=== PATIENT | female | born 1945 | race Asian ===

== ENCOUNTER 2020-07-13 09:20 | Inpatient (IN) | payer MEDICARE, BC ==
[2020-07-13] MEDS ORDERED: niCARdipine 25 MG in Sodium Chloride 0.9% 250 ML 250 ML IVPB PRN (10:21)
[2020-07-13] MEDS ORDERED: Ondansetron PF 4 MG/2 ML Vial IVP PRN (10:21)
[2020-07-13] MEDS ORDERED: Pantoprazole 40 MG VIAL IVP SCH (10:21)
[2020-07-13] MEDS ORDERED: Senokot S 8.6-50 MG TAB PO PRN (10:21)
[2020-07-13] MEDS ORDERED: Bisacodyl 10 MG SUPP PR PRN (10:21)
[2020-07-13] MEDS ORDERED: Acetaminophen 325 MG TAB PO PRN (10:21)
[2020-07-13] MEDS ORDERED: Guaifenesin DM 100-10/5 ML UDCUP PO PRN (10:21)
--- NOTE | 2020-07-13 11:14 | HP ---
REASON FOR ADMISSION: Hemorrhagic stroke with right hemiplegia. HISTORY OF PRESENTING ILLNESS: Please note majority of this history is obtained by talking to the patient's over phone and ER records as the patient is unable to communicate well and has issues with language barrier as well. She is not oriented at present. Per , the patient fell in the bathroom yesterday morning. He assisted her to go back to the bed. After this, they went to the routine walking in the mall, which they do on a daily basis. He apparently saw the patient dragging her right lower extremity a bit. They came home and ate lunch. During lunch, he noticed that she could not pick and hold on to stuff in the right hand. Anyways, they watch TV and slept. This morning, she wanted to use the restroom and could not get up, that is when he noticed that this was something serious going on and called EMS and the patient was taken to [facility] initially from where she was transferred here. Currently, the patient is not in any distress. She is comfortable breathing. She is moving her left upper and lower extremities freely. She does not move right upper and lower extremities. No exposure to COVID per . PAST MEDICAL AND SURGICAL HISTORY: 1. History of dementia for the last 15 years. says that she has issues with memory, but is functional otherwise, ambulates by herself and communicates well. 2. Tubal ligation. 3. No prior history of stroke or heart disease. CURRENT MEDICATIONS: 1. Omeprazole 20 mg daily. 2. Aricept 10 mg daily. 3. Namenda 10 mg twice daily. 4. Metamucil 0.4 mg daily. ALLERGIES: NO KNOWN DRUG ALLERGIES. PERSONAL HISTORY: Does not abuse alcohol or drugs. No history of smoking. She has been [place] in the [place] with her . FAMILY HISTORY: Both parents in their 70s from unknown cause. CODE STATUS: Full. Power of litigation attorney associate is her . REVIEW OF SYSTEMS: Cannot be obtained as the patient is not oriented at present. PHYSICAL EXAMINATION: GENERAL: The patient is a 75-year-old female who is currently not in any acute distress. VITAL SIGNS: Blood pressure 140/110, pulse 82 per minute, respiratory rate 18 per minute, temperature 98.2 degrees Fahrenheit, saturating 95% on room air. NECK: Supple. No elevated JVP. EYES: Extraocular muscles intact. Pupils reacting to light. ORAL CAVITY: Mucous membranes are dry. No exudates or congestion. CARDIOVASCULAR SYSTEM: S1 and S2 heard. Regular rhythm. RESPIRATORY SYSTEM: Air entry 1+ bilateral. No rales or rhonchi. ABDOMEN: Soft. Bowel sounds heard. No tenderness, rigidity, or guarding. EXTREMITIES: No peripheral edema or calf tenderness. VASCULAR SYSTEM: Peripheral pulses 2+ bilateral. No ischemic ulcers or gangrene. CENTRAL NERVOUS SYSTEM: The patient has dense right hemiplegia with strength of 0/5 in both right upper and lower extremities. The patient tries to communicate. She does not appear to have any cranial nerve deficits on limited clinical exam. She freely moves her left upper and lower extremities. PSYCHIATRIC SYSTEM: No obvious hallucinations or delusions. LABORATORY DATA AND DIAGNOSTIC STUDIES: A CT brain without contrast obtained shows a 4 x 4.5 cm patchy intraparenchymal hemorrhage in the left parietal lobe without extra-axial hemorrhage, there is no midline shift. Chest x-ray done shows no acute intrathoracic disease. White count of 4, hemoglobin and hematocrit 14 and 45, platelet count 183, and MCV is 89 with 59% neutrophils. PT, INR, and PTT within normal limits. BUN 12, creatinine 0.9, and serum glucose 134. Liver enzymes within normal limits. First set of troponin is negative. Albumin 4.2. EKG done shows normal sinus rhythm with incomplete RBBB at 90 beats per minute. CLINICAL IMPRESSION AND PLAN: The patient will be admitted to ICU for intraparenchymal bleed with hemorrhagic right hemiplegia. The patient has not had prior cerebrovascular accident. She has had symptoms of dementia for the last 15 years. Unclear if the patient has amyloidosis. We will obtain a repeat CT brain without contrast in the morning. JOANNE Sanabria, for Neurosurgery has been consulted from ER. Ms. Arce is not on any antiplatelet or on any anticoagulants. No history of heart disease or arrhythmias in the past. She will be on Protonix IV daily, D5 normal saline at 80 mL per hour. We will keep her on clear liquid diet. Echo for LV function. Speech, PT, and OT evaluations will be requested. We will continue to closely monitor her in ICU for tonight, and once she is stable, we will downgrade her to stroke unit. The patient likely will need rehab upon discharge for further recuperation. Might need a MRI with contrast in 4 weeks to see for any underlying mass leading to bleed in the brain. Job ID: [id number] [facility]
[2020-07-13 12:48] LABS: SARS-CoV-2 NAA Rapid Test Not Detected (NotDetected)
--- NOTE | 2020-07-13 16:13 | CON ---
DATE OF CONSULTATION: HISTORY OF PRESENT ILLNESS: Ms. Arce is a pleasant 75-year-old woman with baseline Alzheimer dementia, who reportedly yesterday was out on her typical walk with her when he noticed that she was somewhat dragging her right lower leg. He provides most of the history given her altered cognitive status, but also significant language barrier. He states that he did not think much of this, but then this morning, the patient was unable to get out of bed and essentially appeared to be hemiplegic on the right side in the upper and lower extremity. For this purpose, he brought her to the emergency department at [facility], where they performed a head CT that revealed a left-sided subacute intraparenchymal hemorrhage measuring roughly 4 x 5 cm, but also rather superficial within the cortical grady matter. There is no midline shift, only moderate vasogenic edema and minimal mass effect to the surrounding brain parenchyma. She does not take any blood thinning medications. Has no other history other than the aforementioned dementia. PHYSICAL EXAMINATION: The patient is alert and interactive, but frequently combative. Apparently, this is the baseline for the patient according to daughter and at bedside. She does move her left upper and left lower extremity briskly and with ease, but does not necessarily follow any given commands. Some of this may certainly be related to language barrier as well. Pupils equal, round, and reactive to light. Extraocular movements are intact. Her systolic pressures are excellent in the 108 to 115 range while I am in the room. Neurosurgery recommendation at this time will be definitively nonsurgical. I would like to repeat her CT scan this evening as opposed to tomorrow just to ensure that there is no change at this time, but I do not anticipate any surgical intervention given size, location, and appearance at this time. I did discuss with family that she will likely need extensive rehab to regain functionality in the right side, but that time we will ultimately tell the extent of debility, their understanding of this. Neurosurgery will continue to follow. Job ID: [id number]
--- NOTE | 2020-07-13 17:50 | CON ---
NEUROLOGY CONSULTATION DATE OF CONSULTATION: 07/13/2020 REASON FOR CONSULTATION: Hemorrhagic stroke with right hemiplegia. HISTORY OF PRESENT ILLNESS: Ms. Yazmin Santos is a 75-year-old female, who presented with right hemiplegia. Per , she fell in the bathroom yesterday morning. He assisted to the bed. They went walking routinely to the mall, which they do it on a daily basis and he noticed that she was dragging her right lower extremity. They went home, ate lunch and at that time she could not pick anything from her right arm. They watched TV and she slept. In the morning, she woke up and unable to go to the restroom by herself and felt weak on the right side of the body, so he decided to bring her to the emergency room for further evaluation. The denies any recent sick contacts, exposure to COVID, chest pain, chest pain, abdominal pain, vertigo, dizziness, double vision or loss of vision associated with the episode. REVIEW OF SYSTEMS: Per , all systems reviewed and were negative except the pertinent positives and negatives mentioned in the HPI. PAST MEDICAL HISTORY: Dementia. PAST SURGICAL HISTORY: Tubal ligation. No prior history of stroke or heart disease. FAMILY HISTORY: Not significant for stroke or heart disease. CURRENT MEDICATIONS: 1. Omeprazole 20 mg daily. 2. Aricept 10 mg daily. 3. Namenda 10 mg twice daily. 4. Metamucil 0.4 mg daily. ALLERGIES: NO KNOWN DRUG ALLERGIES. SOCIAL HISTORY: , lives with her . Denies smoking, alcohol, illegal drug use. PHYSICAL EXAMINATION: VITAL SIGNS: Blood pressure 140/110, pulse 82, respiratory rate 18. CVS: Regular rate and rhythm. CHEST: Clear. ABDOMEN: Soft. NECK: Supple. NEUROLOGICAL: Mental status, the patient is alert and oriented to person and place. She does have expressive aphasia. Cranial nerves, right facial droop. Motor; muscle tone is decreased, bulk is normal. Right hemiplegia, spontaneously moving left upper and lower extremity. Cerebellar, unable to perform on the right secondary to weakness. Sensory, withdraws to nailbed pressure left greater than right. Gait deferred due to patient's safety reason. DATA REVIEWED: CT scan of the brain reviewed which showed 4.5 cm patchy intraparenchymal hemorrhage in the left parietal lobe without extra-axial blood and no midline shift. EKG showed normal sinus rhythm. ASSESSMENT AND PLAN: Ms. ANDRADE was consulted for right hemiplegia. Head CT consistent with hemorrhagic stroke. Neurosurgery is on board. Neuro checks every 2 hours. Neurosurgery is on board. Avoid antiplatelets or anticoagulants. Continue telemetry to rule out arrhythmias. Strict control of blood pressure at this time. Neuro checks every 2 hours. Consider stat noncontrast head CT if the condition worsens. Need stroke work up including MRI Brain, 2 D Echo and carotid dopplers. Continue home medications. Continue medical management per primary team, PT/OT/Speech. DVT prophylaxis with SCDs. We will continue to follow. Thank you for the consult. Job ID: [id number] [facility]
[2020-07-13] MEDS ORDERED: Labetalol HCl 100 MG/20 ML VIAL ONE (21:28)
--- NOTE | 2020-07-13 21:36 | CT ---
NONCONTRAST CT HEAD: 07/13/20 HISTORY: Follow-up stroke. COMPARISON: 07/13/20 FINDINGS: The previously described large left frontal lobe hemorrhage with adjacent edema has increased. Larges t dimension of the hemorrhage on the current exam measures 5.4 cm AP x 5 cm transverse with previous measurements of 4 cm AP x 4.5 cm transverse. The adjacent edema is also increased from prior exam. Th ere is sulcal effacement involving the left frontal lobe. There is also bowing of the falx to the rig ht with slight shift of midline structures to the right measuring approximately 2.5 mm. Mild cerebral volume loss is present. There is no evidence of hydrocephalus. No calvarial fracture is seen. No other interval change. IMPRESSION: 1. Interval increase in size of large parenchymal hematoma in the left frontal lobe with increas e in adjacent edema as well as increase in sulcal effacement. 2. Slight shift of midline structures to the right at level of hemorrhage. 3. Above findings discussed with Florentin Polk, neurosurgery PA on 07/13/20 at 2043 hours. POS: RUSSEL
[2020-07-13] MEDS: Metoprolol Tartrate 25 MG TAB PO SCH (21:48)
[2020-07-13 22:48] LABS: Bacteria/HPF None Seen HPF (None Seen); Bilirubin Negative (Negative); Blood, Urine 1+ (Negative); Clarity Turbid (Clear); Glucose, Urine (Dipstick) Normal (Negative); Ketone, Urine 20 mg/dL (Negative); Leukocyte Negative Leu/uL (Negative); Nitrite Negative (Negative); Protein, Urine (Dipstick) 30 mg/dL (Neg-Trace); Specific Gravity, Urine 1.016 (1.002-1.036); Squamous Epithelial None Seen HPF (0-3); Transitional Epithelial 0-3 HPF (None Seen); Urobilinogen Normal mg/dL (Less than 2); WBC/HPF 0-3 HPF (0-3)
[2020-07-13 22:52] LABS: Urine Culture Reflex No No
[2020-07-13] MEDS: Labetalol HCl 100 MG/20 ML VIAL SLOW IVP PRN (23:33)
[2020-07-14 03:38] LABS: #Eosinphils 0.1 thou/uL (0.0-0.7); #Lymphocytes 1.5 thou/uL (1.20-3.40); #Monocytes 0.4 thou/uL (0.11-0.59); #Neutrophils 5.6 thou/uL (1.40-6.50); %Basophils 0.2 % (0.0-1.0); %Eosinophils 0.8 % (0.0-10.0); %Lymphocytes 20.1 % (21.0-51.0); %Monocytes 5.8 % (0.0-10.0); %Neutrophils 73.1 % (42.0-75.0); Mean Corpuscular HGB CONC 32.7 g/dL (32.0-36.0); Mean Corpuscular Hemoglobin 28.9 pg (27.0-31.0); Mean Corpuscular Volume 88.4 fL (78.0-98.0); Mean Platelet Volume 6.4 fL (7.4-10.4); Platelet Count 207 thou/uL (130-400); RBC Distribution Width 12.4 % (11.5-14.5); Red Blood Cell (RBC) Count 5.18 mill/uL (4.20-5.40); White Blood Cell (WBC) Count 7.6 thou/uL (4.8-10.8)
[2020-07-14 04:01] LABS: Anion Gap 15 mmol/L (10-20); BUN (Urea Nitrogen) 14 mg/dL (9.8-20.1); Calc. Creatinine Clearance 54 mL/min (70-130); Calcium 9.1 mg/dL (7.8-10.44); Carbon Dioxide 21 mmol/L (23-31); Cardiac Risk 4.5 (Less than 4.5); Chloride 110 mmol/L (98-107); Cholesterol 156 mg/dl (< 200 Desired); Glucose 135 mg/dL (83-110); HDL Cholesterol 35 mg/dL (>60 Neg Risk); LDL Cholesterol, Calculated 76 mg/dL; Potassium 3.7 mmol/L (3.5-5.1); Sodium 142 mmol/L (136-145); Triglycerides 223 mg/dL (Less than 150)
--- NOTE | 2020-07-14 07:17 | PRG ---
DATE OF SERVICE: 07/14/2020 Ms. Arce presented yesterday with altered mental status and with a head CT which revealed the presence of a large left frontal intraparenchymal hemorrhage. She has had at least 2 subsequent CTs performed since that time which reveal slight enlargement with a slight degree of midline shift and associated perihemorrhagic edema. This is a large intraparenchymal frontal with some parietal extension hematoma in the dominant lobe. The plan will be nonsurgical management. Osmotic agents maybe utilized as necessary to reduce intracranial pressure and midline shift. Neurosurgical Service will continue to follow. Job ID: [id number]
--- NOTE | 2020-07-14 07:37 | CT ---
PRELIMINARY REPORT/[facility]/EMERGENCY AFTER HOURS PROCEDURE EXAM: CT Head Without Intravenous Contrast. CLINICAL HISTORY: Follow up ICH TECHNIQUE: Axial computed tomography images of the head/brain without intravenous contrast. COMPARISON: CTSR - CT BRAIN WO CON - 07/13/2020 08:36 PM OPERATIONS SUPPORT ANALYST FINDINGS: BRAIN: Left frontal lobe hemorrhage measures up to 4.9 cm in maximum transverse dimension is similar in appe arance compared to prior given slightly different is in positioning. There is persistent vasogenic edema and adjacent mass-effect in the left frontal and parietal lobes there is mild persistent bowing of the Hong and 3 left to right midline shift at the level of the septum pellucidum, similar in appearance compared to prior. No new intracranial hemorrhage, midline shift or evidence of herniation . VENTRICLES: The ventricles are unchanged in appearance. ORBITS: The globes are intact. SINUSES AND MASTOIDS: The paranasal sinuses and mastoid air cells are clear. SOFT TISSUES: No significant facial or scalp soft tissue swelling evident. No radiopaque foreign body is seen. BONES: No acute skull fracture. IMPRESSION: Large left frontal lobe hematoma with surrounding edema and mass-effect. Minimal left to right midli ne shift. Findings are stable in comparison to prior. No new intracranial hemorrhage, midline shift or evidence of herniation. ELECTRONICALLY SIGNED BY: Charmaine Gray MD Jul 14, 2020 4:18:29 AM OPERATIONS SUPPORT ANALYST This report is intended for review by the ordering physician only, in accordance of law. If you recei ve this report in error, please call [facility] at [phone]. FINAL REPORT Final interpretation Head CT without contrast: 07/14/2020 COMPARISON: 07/13/2020 HISTORY: Reevaluate intracranial hemorrhage. FINDINGS: The imaged paranasal sinuses and mastoid air cells are well-aerated. There is no displaced calvarial fracture seen. There is a large complex intra-axial hemorrhage in the left frontal region measuring approximately 5. 5 cm in transverse dimension and 4.7 cm in AP dimension, not significantly changed when compared to the most recent prior examination. Prominent surrounding vasogenic edema is unchanged as well. There is slight [id number] midline shift, stable. Very subtle hyperdense nodularity is seen in the region of the tentorium on the left which may signif y subtle calcification or additional hemorrhage. Continued follow-up required. IMPRESSION: No significant interval change in nonspecific large intra-axial hematoma within the left frontal lobe with surrounding vasogenic edema. Follow-up brain MRI with and without contrast is advised. Transcribed Date/Time: 07/14/2020 8:19 AM
[2020-07-14] MEDS: Pantoprazole 40 MG VIAL IVP SCH (09:08)
[2020-07-14] MEDS: Metoprolol Tartrate 25 MG TAB PO SCH ×3 (09:08→21:18)
--- NOTE | 2020-07-14 09:41 | CON ---
DATE OF CONSULTATION: 07/14/2020 REASON FOR CONSULTATION: ICU management. HISTORY OF PRESENT ILLNESS: The patient is a 75-year-old female who was brought to the emergency room yesterday with a left intraparenchymal hemorrhage. She has some right-sided hemiparesis. She has a difficult time communicating. PAST MEDICAL HISTORY: 1. Alzheimer type dementia. 2. Tubal ligation. 3. Gastroesophageal reflux. MEDICATIONS: Omeprazole, Aricept, Namenda, Metamucil. ALLERGIES: NONE. SOCIAL HISTORY: Nonsmoker. Does not consume alcohol. Originally from [place]. FAMILY MEDICAL HISTORY: Unknown. REVIEW OF SYSTEMS: Not obtainable secondary to her dementia. PHYSICAL EXAMINATION: VITAL SIGNS: Pulse 86, blood pressure 121/65, O2 saturations 98%, respiratory rate 16. She was on a nicardipine drip that has been stopped. HEENT: Unremarkable. NECK: No JVD. LUNGS: Clear. CARDIAC: S1 and S2. Regular. ABDOMEN: Soft. EXTREMITIES: No edema. NEUROLOGIC: She has some hemiparesis in the right arm. LABORATORY DATA: White blood cell count 7.6, hematocrit 45.8, and platelet count 207. Sodium 142, potassium 3.7, chloride 110, CO2 of 21, BUN 14, creatinine 0.8, and glucose 135. COVID test was negative. CT scan was reviewed. ASSESSMENT: Brain hemorrhage. PLAN: Supportive care as per Neurosurgery is planned. The lab from a pulmonary standpoint will be available as needed. Job ID: [id number]
--- NOTE | 2020-07-14 14:34 | PDOC.EEG ---
Neurology EEG Report - Report Report: This EEG was performed using 24 channel [employer] video digital EEG machine with 24 disc electrodes. This was an extended 2-hour 4 minutes of inpatient video EEG recording. Digital analysis of the EEG was done for Cristofer and seizure detection which revealed no abnormalities Background: The posterior background rhythm is not observed. Hyperventilation: Not performed. Photic stimulation. Bioccipital symmetric response seen with photic stimulation. Sleep: No stage change was observed. EEG diagnosis: Generalized irregular theta activity seen during the recording. Nonsustained posterior background rhythm. Clinical interpretation: This EEG is consistent with moderate generalized nonspecific cerebral dysfunction.
--- NOTE | 2020-07-14 15:34 | PDOC.HOSPP ---
- Subjective Encounter Date: 07/14/20 Subjective: The patient is unable to talk but she can follow commands. - Objective Vital Signs & Weight: Vital Signs (12 hours) Temp Pulse Pulse BP BP Pulse Ox Pulse Ox 07/14/20 12:00 98.9 F 07/14/20 09:33 85 79 126/78 131/80 97 07/14/20 07:22 100 Pulse Ox 07/14/20 12:00 07/14/20 09:33 97 07/14/20 07:22 Weight Admit Weight 134 lb Weight 134 lb 4.184 oz Most Recent Monitor Data Heart Rate from ECG 85 NIBP 131/72 NIBP BP-Mean 91 Respiration from ECG 18 SpO2 95 I&O: 07/13/20 07/14/20 07/15/20 06:59 06:59 06:59 Intake Total 115 Output Total 617 245 Balance -502 -245 Result Diagrams: 07/14/20 03:17 07/14/20 03:17 Hospitalist ROS - Medication Medications: Active Medications Generic Name Dose Route Start Last Admin Trade Name Freq PRN Reason Stop Dose Admin Nicardipine HCl 25 mg/ Sodium 260 mls @ 0 mls/hr 07/13/20 10:21 07/14/20 00:06 Chloride IVPB 260 mls INF PRN Administration SBP > 140 Protocol Titrate Labetalol HCl 10 mg 07/13/20 21:26 07/13/20 23:33 Labetalol Hcl 100 Mg/20 Ml Vial SLOW IVP 10 mg Q2H PRN Administration SBP > 140 Metoprolol Tartrate 25 mg 07/13/20 21:00 07/14/20 09:16 Metoprolol Tartrate 25 Mg Tab PO Not Given BID GRAZYNA Pantoprazole Sodium 40 mg 07/14/20 09:00 07/14/20 09:08 Pantoprazole 40 Mg Vial IVP 40 mg DAILY GRAZYAN Administration - Exam General Appearance: awake alert Neck: supple, no JVD Heart: RRR Respiratory: normal chest expansion, no tachypnea Extremities: no cyanosis Neurological - other findings: Right-sided weakness Hosp A/P (1) Intracranial hemorrhage Code(s): I62.9 - NONTRAUMATIC INTRACRANIAL HEMORRHAGE, UNSPECIFIED Status: Acute (2) Altered mental status Code(s): R41.82 - ALTERED MENTAL STATUS, UNSPECIFIED Status: Acute - Plan Repeat CT scan of the head revealed stable hemorrhage. The patient is following commands and moving her left side but unable to move the right side of her body. Blood pressure is stable with no evidence of hypertension. Echocardiogram did not show any evidence of intracardiac thrombi.
--- NOTE | 2020-07-14 15:59 | PDOC.NEUPN ---
- Subjective Encounter Date: 07/14/20 Subjective: Patient somnolent and does not follow commands. Family at bedside. - Objective Vital Signs & Weight: Vital Signs (12 hours) Temp Pulse Pulse BP BP Pulse Ox Pulse Ox 07/14/20 12:00 98.9 F 07/14/20 09:33 85 79 126/78 131/80 97 07/14/20 07:22 100 Pulse Ox 07/14/20 12:00 07/14/20 09:33 97 07/14/20 07:22 Weight Admit Weight 134 lb Weight 134 lb 4.184 oz Most Recent Monitor Data Heart Rate from ECG 85 NIBP 131/72 NIBP BP-Mean 91 Respiration from ECG 18 SpO2 95 I&O: 07/13/20 07/14/20 07/15/20 06:59 06:59 06:59 Intake Total 115 Output Total 617 245 Balance -502 -245 Result Diagrams: 07/14/20 03:17 07/14/20 03:17 Radiology Reviewed by me: Yes EKG Reviewed by me: Yes ROS - Review of Systems ROS unobtainable: due to mental status - Medication Medications: Active Medications Generic Name Dose Route Start Last Admin Trade Name Freq PRN Reason Stop Dose Admin Nicardipine HCl 25 mg/ Sodium 260 mls @ 0 mls/hr 07/13/20 10:21 07/14/20 00:06 Chloride IVPB 260 mls INF PRN Administration SBP > 140 Protocol Titrate Labetalol HCl 10 mg 07/13/20 21:26 07/13/20 23:33 Labetalol Hcl 100 Mg/20 Ml Vial SLOW IVP 10 mg Q2H PRN Administration SBP > 140 Metoprolol Tartrate 25 mg 07/13/20 21:00 07/14/20 09:16 Metoprolol Tartrate 25 Mg Tab PO Not Given BID GRAZYNA Pantoprazole Sodium 40 mg 07/14/20 09:00 07/14/20 09:08 Pantoprazole 40 Mg Vial IVP 40 mg DAILY GRAZYNA Administration - Exam General Appearance: NAD Eye: PERRL ENT: normocephalic atraumatic Neck: supple Respiratory: CTAB Cardiovascular: RRR Gastrointestinal: soft Extremities: no cyanosis Neurological: facial droop, hemiplegia, speech deficit Neurological - other findings: Right-sided focal deficit Musculoskeletal: normal tone, no muscle wasting PSYCH: somnolent Results - Labs Result Diagrams: 07/14/20 03:17 07/14/20 03:17 Lab results: WBC 7.6 thou/uL (4.8-10.8) 07/14/20 03:17 Hgb 15.0 g/dL (12.0-16.0) 07/14/20 03:17 Hct 45.8 % (36.0-47.0) 07/14/20 03:17 MCV 88.4 fL (78.0-98.0) 07/14/20 03:17 Plt Count 207 thou/uL (130-400) 07/14/20 03:17 Neutrophils % 73.1 % (42.0-75.0) 07/14/20 03:17 Sodium 142 mmol/L (136-145) 07/14/20 03:17 Potassium 3.7 mmol/L (3.5-5.1) 07/14/20 03:17 Chloride 110 mmol/L (98-107) H 07/14/20 03:17 Carbon Dioxide 21 mmol/L (23-31) L 07/14/20 03:17 BUN 14 mg/dL (9.8-20.1) 07/14/20 03:17 Creatinine 0.83 mg/dL (0.6-1.1) 07/14/20 03:17 Glucose 135 mg/dL (83-110) H 07/14/20 03:17 Calcium 9.1 mg/dL (7.8-10.44) 07/14/20 03:17 Urine Ketones 20 mg/dL (Negative) A 07/13/20 22:20 Urine Blood 1+ (Negative) A 07/13/20 22:20 Urine Nitrite Negative (Negative) 07/13/20 22:20 Ur Leukocyte Esterase Negative Leonor/uL (Negative) 07/13/20 22:20 Urine RBC 11-20 HPF (0-3) A 07/13/20 22:20 Urine WBC 0-3 HPF (0-3) 07/13/20 22:20 Ur Squamous Epith Cells None Seen HPF (0-3) 07/13/20 22:20 Urine Bacteria None Seen HPF (None Seen) 07/13/20 22:20 - Radiology Interpretation CT scan - head Additional Comment: CT showed stable left intraparenchymal hemorrhage PN A/P (1) Intracranial hemorrhage Code(s): I62.9 - NONTRAUMATIC INTRACRANIAL HEMORRHAGE, UNSPECIFIED Status: Acute (2) Right hemiplegia Code(s): G81.91 - HEMIPLEGIA, UNSPECIFIED AFFECTING RIGHT DOMINANT SIDE Status: Acute (3) Altered mental status Code(s): R41.82 - ALTERED MENTAL STATUS, UNSPECIFIED Status: Acute - Plan Daily Plan: plan discussed w/ family (Daughter and son at bedside), PT/OT, speech therapy, DVT proph w/SCDs Ms. carmichael is a 75-year-old female with history significant for Alzheimer's dementia hypertension presented with altered mental status and right hemiplegia with speech deficit. Head CT showed large intraparenchymal hemorrhage on the left. Repeat head CT showed stable hemorrhage. Neurosurgery on board. Serial head CTs daily per neurosurgery to monitor the bleed. Neurosurgery do not feel the need of surgical intervention at this time. Neurochecks every [address] if the condition declines. EEG reviewed which was negative for seizure activity. Telemetry to rule out arrhythmias. 2D echo showed normal ejection fraction with no thrombus or PFO. Stroke work-up including MRI brain and carotid Dopplers when stable Avoid antiplatelets and anticoagulants due to recent bleed. PT/OT/speech. N.p.o. till cleared by speech. Continue medical management per primary team neurosurgery. Plan discussed in detail with the nursing staff and also with the son and daughter at bedside including the prognosis and CODE STATUS.
--- NOTE | 2020-07-14 16:20 | PRG ---
DATE OF SERVICE: 07/14/2020 Ms. Arce this morning is a little more somnolent than compared to yesterday, but apparently according to neuro checks, she actually was a little bit worse than how I am seeing her today. She is awake and interactive. She says one-word phrases [id number]. The hemorrhage did expand to some degree comparatively on yesterday evening scan as compared to her repeat CT this morning, however, appears stable , so this is some positivity. Vitals; her systolic pressure is 108 as I am standing here and apparently this has been consistent since overnight. My hope is that this does not continue to expand, but it may be reasonable to think that she has apathy or some other angiographic process underlying that is the line for expansion given the excellent control of her blood pressure since presentation to the hospital. No surgery was indicated here. I discussed with family that I think over the next 24 hours, we will know a lot more about her prognosis, but still feels hemorrhage. She will just need extensive rehab to fully recover. If this is truly hemorrhage personal service representative angiopathy, though risk for recurrence is high and I worry about further worsening of hemorrhages, we would increase activity in the coming days. Job ID: [id number]
[2020-07-15] MEDS: Sodium Chloride 0.9% 1,000 ML IV SCH (03:16)
--- NOTE | 2020-07-15 08:05 | CT ---
CT BRAIN NONCONTRAST: DATE: 07/15/2020 7:29 AM HISTORY: 75-year-old female follow-up acute intracranial hemorrhage COMPARISON: 07/14/2020 3:54 AM FINDINGS: Large upper frontal left cerebral intra-axial hematoma. Depending on how it is measured, with current measurements of approximately 6.5 x 5 cm, there is no significant interval change since yesterday. Minimal left to right midline shift of the interhemispheric falx and septum pellucidum by approximate ly 0.3 cm is similar. Degree of surrounding vasogenic edema with effacement of left hemispheric sulci and distortion of left lateral ventricle appears similar to prior study. No new hemorrhage. Mustapha varium is intact. No interval change overall. IMPRESSION: Large spontaneous left upper cerebral intra-axial hematoma with vasogenic edema, mass effect, and min imal subfalcine herniation. No significant interval change since yesterday.
--- NOTE | 2020-07-15 08:55 | PRG ---
DATE OF SERVICE: 07/15/2020 SUBJECTIVE: She remains in the CCU. She is not requiring any drips. OBJECTIVE: VITAL SIGNS: On exam, pulse 75, blood pressure 130/70, O2 saturation 97%, respiratory rate 17, and temperature 99.5. HEENT: Unremarkable. NECK: No JVD. CHEST: Clear. CARDIAC: S1 and S2. Regular. ABDOMEN: Soft. EXTREMITIES: No edema. LABORATORY DATA: No labs were obtained today. ASSESSMENT: Intracranial hemorrhage. PLAN: From my standpoint, she can be transferred out to the floor. There are no pulmonary issues at present. Job ID: [id number]
[2020-07-15] MEDS: Labetalol HCl 100 MG/20 ML VIAL SLOW IVP PRN (09:31)
[2020-07-15] MEDS: Metoprolol Tartrate 25 MG TAB PO SCH ×2 (10:06→22:32)
[2020-07-15] MEDS: Pantoprazole 40 MG VIAL IVP SCH (10:07)
--- NOTE | 2020-07-15 12:53 | PDOC.NEUPN ---
- Subjective Encounter Date: 07/15/20 Subjective: Patient somnolent but opens eyes to verbal stimuli. She does not follow commands but does maintain eye contact. - Objective Vital Signs & Weight: Vital Signs (12 hours) Temp Pulse Pulse Pulse BP BP BP 07/15/20 12:00 99.0 F 07/15/20 09:52 72 74 132/82 141/75 H 07/15/20 09:31 85 145/79 H 07/15/20 08:00 99.1 F 07/15/20 04:00 99.5 F Pulse Ox Pulse Ox Pulse Ox 07/15/20 12:00 07/15/20 09:52 96 97 07/15/20 09:31 07/15/20 08:00 97 07/15/20 04:00 Weight Admit Weight 134 lb Weight 2.106 oz Most Recent Monitor Data Heart Rate from ECG 74 NIBP 118/69 NIBP BP-Mean 85 Respiration from ECG 15 SpO2 92 I&O: 07/14/20 07/15/20 07/16/20 06:59 06:59 06:59 Intake Total 115 118 Output Total 617 780 245 [facility] -662 -245 Result Diagrams: 07/14/20 03:17 07/14/20 03:17 Radiology Reviewed by me: Yes EKG Reviewed by me: Yes ROS - Review of Systems ROS unobtainable: due to mental status - Medication Medications: Active Medications Generic Name Dose Route Start Last Admin Trade Name Freq PRN Reason Stop Dose Admin Nicardipine HCl 25 mg/ Sodium 260 mls @ 0 mls/hr 07/13/20 10:21 07/14/20 00:06 Chloride IVPB 260 mls INF PRN Administration SBP > 140 Protocol Titrate Sodium Chloride 1,000 mls @ 40 mls/hr 07/15/20 03:00 07/15/20 03:16 Normal Saline 0.9% IV 1,000 mls .Q24H GRAZYNA Administration Labetalol HCl 10 mg 07/13/20 21:26 07/15/20 09:31 Labetalol Hcl 100 Mg/20 Ml Vial SLOW IVP 10 mg Q2H PRN Administration SBP > 140 Metoprolol Tartrate 25 mg 07/13/20 21:00 07/15/20 10:06 Metoprolol Tartrate 25 Mg Tab PO Not Given BID GRAZYNA Pantoprazole Sodium 40 mg 07/14/20 09:00 07/15/20 10:07 Pantoprazole 40 Mg Vial IVP 40 mg DAILY GRAZYNA Administration - Exam General Appearance: NAD, awake alert Eye: PERRL ENT: normocephalic atraumatic Neck: supple Respiratory: CTAB Cardiovascular: RRR Gastrointestinal: soft Extremities: no cyanosis Neurological: facial droop, hemiplegia, speech deficit Neurological - other findings: Right-sided deficits Musculoskeletal: no muscle wasting PSYCH: not oriented (Aphasic), somnolent Results - Labs Result Diagrams: 07/14/20 03:17 07/14/20 03:17 Lab results: WBC 7.6 thou/uL (4.8-10.8) 07/14/20 03:17 Hgb 15.0 g/dL (12.0-16.0) 07/14/20 03:17 Hct 45.8 % (36.0-47.0) 07/14/20 03:17 MCV 88.4 fL (78.0-98.0) 07/14/20 03:17 Plt Count 207 thou/uL (130-400) 07/14/20 03:17 Neutrophils % 73.1 % (42.0-75.0) 07/14/20 03:17 Sodium 142 mmol/L (136-145) 07/14/20 03:17 Potassium 3.7 mmol/L (3.5-5.1) 07/14/20 03:17 Chloride 110 mmol/L (98-107) H 07/14/20 03:17 Carbon Dioxide 21 mmol/L (23-31) L 07/14/20 03:17 BUN 14 mg/dL (9.8-20.1) 07/14/20 03:17 Creatinine 0.83 mg/dL (0.6-1.1) 07/14/20 03:17 Glucose 135 mg/dL (83-110) H 07/14/20 03:17 Calcium 9.1 mg/dL (7.8-10.44) 07/14/20 03:17 Urine Ketones 20 mg/dL (Negative) A 07/13/20 22:20 Urine Blood 1+ (Negative) A 07/13/20 22:20 Urine Nitrite Negative (Negative) 07/13/20 22:20 Ur Leukocyte Esterase Negative Leonor/uL (Negative) 07/13/20 22:20 Urine RBC 11-20 HPF (0-3) A 07/13/20 22:20 Urine WBC 0-3 HPF (0-3) 07/13/20 22:20 Ur Squamous Epith Cells None Seen HPF (0-3) 07/13/20 22:20 Urine Bacteria None Seen HPF (None Seen) 07/13/20 22:20 - Radiology Interpretation CT scan - head Additional Comment: Repeat head CT showed stable left intraparenchymal hematoma with vasogenic edema. PN A/P (1) Intracranial hemorrhage Code(s): I62.9 - NONTRAUMATIC INTRACRANIAL HEMORRHAGE, UNSPECIFIED Status: Acute (2) Right hemiplegia Code(s): G81.91 - HEMIPLEGIA, UNSPECIFIED AFFECTING RIGHT DOMINANT SIDE Status: Acute (3) Altered mental status Code(s): R41.82 - ALTERED MENTAL STATUS, UNSPECIFIED Status: Acute - Plan Daily Plan: PT/OT, speech therapy Consults: Palliative Care Ms. carmichael is a 75-year-old female with history significant for Alzheimer's dementia hypertension presented with altered mental status and right hemiplegia with speech deficit. Head CT showed large intraparenchymal hemorrhage on the left. Repeat head CT this morning showed stable hemorrhage. Patient little bit more alert today but has significant neurological deficits. Prognosis is guarded. No family at bedside today Neurosurgery on board. Serial head CTs daily per neurosurgery to monitor the bleed. Neurosurgery do not feel the need of surgical intervention at this time. Continue neurochecks every [address] if the condition declines. EEG reviewed which was negative for seizure activity. Telemetry to rule out arrhythmias. 2D echo showed normal ejection fraction with no thrombus or PFO. Stroke work-up including MRI brain and carotid Dopplers when stable Avoid antiplatelets and anticoagulants due to recent bleed. PT/OT/speech. N.p.o. till cleared by speech. Continue medical management per primary team and neurosurgery.
--- NOTE | 2020-07-15 13:07 | PRG ---
DATE OF SERVICE: 07/15/2020 Ms. Arce is stable this morning both neurologically and from standpoint of her repeat CT scan. Systolic pressures have remained in the one teens to 120s. No additional intervention planned at this time. I discussed with the patient's at bedside again that prognosis remains guarded. She likely will continue to experience increase in edema, which will worsen her neurologic exam and remains for this purpose. We will continue to follow along at this time. Job ID: [id number]
--- NOTE | 2020-07-15 15:22 | PDOC.HOSPP ---
- Subjective Encounter Date: 07/15/20 - Objective Vital Signs & Weight: Vital Signs (12 hours) Temp Pulse Pulse Pulse BP BP BP 07/15/20 12:00 99.0 F 07/15/20 09:52 72 74 132/82 141/75 H 07/15/20 09:31 85 145/79 H 07/15/20 08:00 99.1 F 07/15/20 04:00 99.5 F Pulse Ox Pulse Ox Pulse Ox 07/15/20 12:00 07/15/20 09:52 96 97 07/15/20 09:31 07/15/20 08:00 97 07/15/20 04:00 Weight Admit Weight 134 lb Weight 2.106 oz Most Recent Monitor Data Heart Rate from ECG 83 NIBP 119/81 NIBP BP-Mean 93 Respiration from ECG 21 SpO2 96 I&O: 07/14/20 07/15/20 07/16/20 06:59 06:59 06:59 Intake Total 115 118 Output Total 612 780 275 [facility] -502 -662 -275 Result Diagrams: 07/14/20 03:17 07/14/20 03:17 Hospitalist ROS - Medication Medications: Active Medications Generic Name Dose Route Start Last Admin Trade Name Freq PRN Reason Stop Dose Admin Nicardipine HCl 25 mg/ Sodium 260 mls @ 0 mls/hr 07/13/20 10:21 07/14/20 00:06 Chloride IVPB 260 mls INF PRN Administration SBP > 140 Protocol Titrate Sodium Chloride 1,000 mls @ 40 mls/hr 07/15/20 03:00 07/15/20 03:16 Normal Saline 0.9% IV 1,000 mls .Q24H GRAZYNA Administration Labetalol HCl 10 mg 07/13/20 21:26 07/15/20 09:31 Labetalol Hcl 100 Mg/20 Ml Vial SLOW IVP 10 mg Q2H PRN Administration SBP > 140 Metoprolol Tartrate 25 mg 07/13/20 21:00 07/15/20 10:06 Metoprolol Tartrate 25 Mg Tab PO Not Given BID GRAZYNA Pantoprazole Sodium 40 mg 07/14/20 09:00 07/15/20 10:07 Pantoprazole 40 Mg Vial IVP 40 mg DAILY GRAZYNA Administration - Exam General Appearance: awake alert ENT: normocephalic atraumatic Neck: supple, no JVD Heart: RRR Respiratory: normal chest expansion, no tachypnea Extremities: no cyanosis, no clubbing Hosp A/P (1) Intracranial hemorrhage Code(s): I62.9 - NONTRAUMATIC INTRACRANIAL HEMORRHAGE, UNSPECIFIED Status: Acute (2) Altered mental status Code(s): R41.82 - ALTERED MENTAL STATUS, UNSPECIFIED Status: Acute - Plan Repeat CT scan of the head revealed stable hemorrhage. The patient is more alert today and she is following some commands but unable to move the right side of her body. She is participating with ST. Blood pressure is stable with no evidence of hypertension. Echocardiogram did not show any evidence of intracardiac thrombi.
[2020-07-16] MEDS: Labetalol HCl 100 MG/20 ML VIAL SLOW IVP PRN ×2 (02:08→10:12)
[2020-07-16] MEDS: Sodium Chloride 0.9% 1,000 ML IV SCH (02:09)
[2020-07-16] MEDS: Metoprolol Tartrate 25 MG TAB PO SCH ×2 (10:12→20:32)
[2020-07-16] MEDS: Pantoprazole 40 MG VIAL IVP SCH (10:12)
--- NOTE | 2020-07-16 13:52 | PRG ---
DATE OF SERVICE: 07/16/2020 Ms. Arce this morning is in the ICU still. She is stable, does appear somewhat more interactive today though and responds to voice. She actually will make eye contact and smile. She is still densely plegic to the right upper and right lower extremities. Did have a speech evaluation yesterday and had tremendous dysfunction in her swallowing. There is plan for formal modified barium swallow later this afternoon today. I did have discussion with the at bedside and likely recommendation for a PEG tube placement and did briefly discuss rehab though I based off the report from Speech Therapy yesterday and her continued dense plegia, the likelihood of her recovery substantially enough to participate in rehab is likely low. I will still have discussion with and coleman their opinion. At this point, next best steps would likely be one of two pathways either proceeding with PEG tube placement or unlikely looking to disposition, which at this phase would most certainly be [facility] or further proceed of palliative pathway. We will wait until formal barium swallow is performed and then reconvene with family at bedside later this afternoon. Job ID: [id number]
--- NOTE | 2020-07-16 14:38 | PDOC.NEUPN ---
- Subjective Encounter Date: 07/16/20 Subjective: Ms. Arce is doing much better today. She is following some commands and more alert today. She is spontaneously moving her left side. - Objective Vital Signs & Weight: Vital Signs (12 hours) Temp Pulse BP Pulse Ox 07/16/20 12:00 99.0 F 07/16/20 10:12 75 150/75 H 07/16/20 08:00 98.9 F 97 07/16/20 04:00 98.0 F Weight Admit Weight 134 lb Weight 128 lb 8.472 oz Most Recent Monitor Data Heart Rate from ECG 69 NIBP 130/69 NIBP BP-Mean 89 Respiration from ECG 14 SpO2 97 I&O: 07/15/20 07/16/20 07/17/20 06:59 06:59 06:59 Intake Total 118 960 Output Total 780 895 365 Balance -662 65 -365 Result Diagrams: 07/14/20 03:17 07/14/20 03:17 Radiology Reviewed by me: Yes EKG Reviewed by me: Yes ROS - Review of Systems ROS unobtainable: due to mental status (Aphasia) - Medication Medications: Active Medications Generic Name Dose Route Start Last Admin Trade Name Freq PRN Reason Stop Dose Admin Nicardipine HCl 25 mg/ Sodium 260 mls @ 0 mls/hr 07/13/20 10:21 07/14/20 00:06 Chloride IVPB 260 mls INF PRN Administration SBP > 140 Protocol Titrate Sodium Chloride 1,000 mls @ 40 mls/hr 07/15/20 03:00 07/16/20 02:09 Normal Saline 0.9% IV 1,000 mls .Q24H GRAZYNA Administration Labetalol HCl 10 mg 07/13/20 21:26 07/16/20 10:12 Labetalol Hcl 100 Mg/20 Ml Vial SLOW IVP 10 mg Q2H PRN Administration SBP > 140 Metoprolol Tartrate 25 mg 07/13/20 21:00 07/16/20 10:12 Metoprolol Tartrate 25 Mg Tab PO Not Given BID GRAZYNA Pantoprazole Sodium 40 mg 07/14/20 09:00 07/16/20 10:12 Pantoprazole 40 Mg Vial IVP 40 mg DAILY GRAZYNA Administration - Exam General Appearance: awake alert Eye: PERRL ENT: normocephalic atraumatic Neck: supple Respiratory: CTAB Cardiovascular: RRR Gastrointestinal: soft Extremities: no cyanosis Skin: normal turgor Neurological: facial droop, hemiplegia, speech deficit Neurological - other findings: Right-sided neurological deficit Musculoskeletal: normal tone, no muscle wasting PSYCH: not oriented (Aphasic) Results - Labs Result Diagrams: 07/14/20 03:17 07/14/20 03:17 Lab results: WBC 7.6 thou/uL (4.8-10.8) 07/14/20 03:17 Hgb 15.0 g/dL (12.0-16.0) 07/14/20 03:17 Hct 45.8 % (36.0-47.0) 07/14/20 03:17 MCV 88.4 fL (78.0-98.0) 07/14/20 03:17 Plt Count 207 thou/uL (130-400) 07/14/20 03:17 Neutrophils % 73.1 % (42.0-75.0) 07/14/20 03:17 Sodium 142 mmol/L (136-145) 07/14/20 03:17 Potassium 3.7 mmol/L (3.5-5.1) 07/14/20 03:17 Chloride 110 mmol/L (98-107) H 07/14/20 03:17 Carbon Dioxide 21 mmol/L (23-31) L 07/14/20 03:17 BUN 14 mg/dL (9.8-20.1) 07/14/20 03:17 Creatinine 0.83 mg/dL (0.6-1.1) 07/14/20 03:17 Glucose 135 mg/dL (83-110) H 07/14/20 03:17 Calcium 9.1 mg/dL (7.8-10.44) 07/14/20 03:17 Urine Ketones 20 mg/dL (Negative) A 07/13/20 22:20 Urine Blood 1+ (Negative) A 07/13/20 22:20 Urine Nitrite Negative (Negative) 07/13/20 22:20 Ur Leukocyte Esterase Negative Leonor/uL (Negative) 07/13/20 22:20 Urine RBC 11-20 HPF (0-3) A 07/13/20 22:20 Urine WBC 0-3 HPF (0-3) 07/13/20 22:20 Ur Squamous Epith Cells None Seen HPF (0-3) 07/13/20 22:20 Urine Bacteria None Seen HPF (None Seen) 07/13/20 22:20 - Radiology Interpretation CT scan - head Additional Comment: Stable intraparenchymal hemorrhage on the left PN A/P (1) Intracranial hemorrhage Code(s): I62.9 - NONTRAUMATIC INTRACRANIAL HEMORRHAGE, UNSPECIFIED Status: Acute (2) Right hemiplegia Code(s): G81.91 - HEMIPLEGIA, UNSPECIFIED AFFECTING RIGHT DOMINANT SIDE Status: Acute (3) Altered mental status Code(s): R41.82 - ALTERED MENTAL STATUS, UNSPECIFIED Status: Acute - Plan Daily Plan: plan discussed w/ family (Stat bedside), PT/OT, speech therapy, DVT proph w/SCDs Ms. carmichael is a 75-year-old female with history significant for Alzheimer's dementia hypertension presented with altered mental status and right hemiplegia with speech deficit. Head CT showed large intraparenchymal hemorrhage on the left. Repeat head CT yesterday showed stable hemorrhage. Patient little bit more alert today and spontaneously moving her left side. Neurosurgery on board. Condition improved and she will be transferred to the s troke floor for further evaluation. Continue neurochecks every [address] if the condition declines. EEG reviewed which was negative for seizure activity. Telemetry to rule out arrhythmias. 2D echo showed normal ejection fraction with no thrombus or PFO. Stroke work-up including MRI brain and carotid Dopplers when stable Avoid antiplatelets and anticoagulants due to recent bleed. PT/OT/speech. N.p.o. till cleared by speech. Continue medical management per primary team and neurosurgery. Plan discussed in detail with the nursing staff and also with the son at bedside
--- NOTE | 2020-07-16 16:28 | RAD ---
Modified barium swallow with speech therapist: 07/16/2020 HISTORY: 75-year-old female Dysphagia following spontaneous nontraumatic intracerebral hemorrhage. Feeding difficulties. FINDINGS: Poor oral phase with tongue pumping and difficulty propelling food bolus to posterior aspect of oral cavity. Good pharyngeal phase, with no delay. Good pharyngeal phases of swallow of thin barium, nectar, pudding, and mechanical soft, with no penet ration or aspiration. No premature free spillage or residue. Good epiglottic inversion and laryngeal elevation. IMPRESSION: 1.) Oral dysphagia. 2) no pharyngeal dysphagia.
--- NOTE | 2020-07-16 17:09 | PRG ---
DATE OF SERVICE: 07/16/2020 I am circling back to Ms. Arce's room after barium swallow study reveals that she did tolerate some mechanically process solids and thicker nectar liquids. She appears to have a fully intact pharyngeal phase of her swallow, just has challenges with the oral phase. Recommendations were made to upgrade her diet, which I feel is positive and perhaps will be able to avoid PEG tube, though she will continue to be an aspiration risk and this seems to be taken into account. I did discuss the patient's prognosis in detail with the son at bedside and feel that her chances for meaningful recovery are slight at this point, given the continued persistent dense plegia to the right upper extremity and paresis of the right lower extremity. He expresses understanding. I did discuss the two likelihoods would be either home with hospice or palliative care, or potential placement in a alf facility. He expressed understanding. We will take the weekend to see how she does and begin decision-making early next week. Job ID: [id number]
--- NOTE | 2020-07-16 17:39 | PDOC.HOSPP ---
- Subjective Encounter Date: 07/16/20 Subjective: The patient is still unable to move the right side of her body. She was able to tolerate some modified oral intake today. She tracks inside the room and smiles upon interacting with people. - Objective Vital Signs & Weight: Vital Signs (12 hours) Temp Pulse BP Pulse Ox 07/16/20 16:00 98.6 F 07/16/20 12:00 99.0 F 07/16/20 10:12 75 150/75 H 07/16/20 08:00 98.9 F 97 Weight Admit Weight 134 lb Weight 128 lb 8.472 oz Most Recent Monitor Data Heart Rate from ECG 73 NIBP 129/70 NIBP BP-Mean 89 Respiration from ECG 18 SpO2 100 I&O: 07/15/20 07/16/20 07/17/20 06:59 06:59 06:59 Intake Total 118 960 Output Total 780 895 465 Balance -662 65 -465 Result Diagrams: 07/14/20 03:17 07/14/20 03:17 Hospitalist ROS - Medication Medications: Active Medications Generic Name Dose Route Start Last Admin Trade Name Freq PRN Reason Stop Dose Admin Nicardipine HCl 25 mg/ Sodium 260 mls @ 0 mls/hr 07/13/20 10:21 07/14/20 00:06 Chloride IVPB 260 mls INF PRN Administration SBP > 140 Protocol Titrate Sodium Chloride 1,000 mls @ 40 mls/hr 07/15/20 03:00 07/16/20 02:09 Normal Saline 0.9% IV 1,000 mls .Q24H GRAZYNA Administration Labetalol HCl 10 mg 07/13/20 21:26 07/16/20 10:12 Labetalol Hcl 100 Mg/20 Ml Vial SLOW IVP 10 mg Q2H PRN Administration SBP > 140 Metoprolol Tartrate 25 mg 07/13/20 21:00 07/16/20 10:12 Metoprolol Tartrate 25 Mg Tab PO Not Given BID GRAZYNA Pantoprazole Sodium 40 mg 07/14/20 09:00 07/16/20 10:12 Pantoprazole 40 Mg Vial IVP 40 mg DAILY GRAZYNA Administration - Exam ENT: normocephalic atraumatic Neck: supple, no JVD Heart: RRR Respiratory: normal chest expansion, no tachypnea Neurological - other findings: Right-sided hemiparesis Hosp A/P (1) Intracranial hemorrhage Code(s): I62.9 - NONTRAUMATIC INTRACRANIAL HEMORRHAGE, UNSPECIFIED Status: Acute (2) Altered mental status Code(s): R41.82 - ALTERED MENTAL STATUS, UNSPECIFIED Status: Acute - Plan Repeat CT scan of the head revealed stable hemorrhage. The patient passed modified barium swallow evaluation. Start diet per ST recommendations. Continue PT and OT. Blood pressure is stable with no evidence of hypertension. Echocardiogram did not show any evidence of intracardiac thrombi.
[2020-07-17] MEDS: Sodium Chloride 0.9% 1,000 ML IV SCH (03:32)
[2020-07-17] MEDS: Metoprolol Tartrate 25 MG TAB PO SCH ×2 (09:16→19:56)
[2020-07-17] MEDS: Pantoprazole 40 MG VIAL IVP SCH (09:17)
--- NOTE | 2020-07-17 13:39 | PDOC.HOSPP ---
- Subjective Subjective: Patient was seen examined at bedside. Discussed with her at bedside. Patient is aphasic. - Objective Vital Signs & Weight: Vital Signs (12 hours) Temp Pulse Pulse Pulse Resp BP BP 07/17/20 12:00 98.8 F 70 12 07/17/20 11:01 84 73 140/75 97/54 L 07/17/20 07:25 98.2 F 74 16 07/17/20 04:00 98.0 F 68 16 BP Pulse Ox 07/17/20 12:00 108/60 93 L 07/17/20 11:01 07/17/20 07:25 114/61 93 L 07/17/20 04:00 123/75 97 Weight Admit Weight 134 lb Weight 128 lb 8.472 oz Most Recent Monitor Data Heart Rate from ECG 78 NIBP 135/74 NIBP BP-Mean 94 Respiration from ECG 16 SpO2 100 I&O: 07/16/20 07/17/20 07/18/20 06:59 06:59 06:59 Intake Total 960 480 Output Total 895 810 Balance 65 -330 Result Diagrams: 07/14/20 03:17 07/14/20 03:17 Radiology Reviewed by me: Yes EKG Reviewed by me: Yes Hospitalist ROS - Medication Medications: Active Medications Generic Name Dose Route Start Last Admin Trade Name Freq PRN Reason Stop Dose Admin Nicardipine HCl 25 mg/ Sodium 260 mls @ 0 mls/hr 07/13/20 10:21 07/14/20 0 0:06 Chloride IVPB 260 mls INF PRN Administration SBP > 140 Protocol Titrate Sodium Chloride 1,000 mls @ 40 mls/hr 07/15/20 03:00 07/17/20 03:32 Normal Saline 0.9% IV 1,000 mls .Q24H GRAZYNA Administration Labetalol HCl 10 mg 07/13/20 21:26 07/16/20 10:12 Labetalol Hcl 100 Mg/20 Ml Vial SLOW IVP 10 mg Q2H PRN Administration SBP > 140 Metoprolol Tartrate 25 mg 07/13/20 21:00 07/17/20 09:16 Metoprolol Tartrate 25 Mg Tab PO 25 mg BID GRAZYNA Administration Pantoprazole Sodium 40 mg 07/14/20 09:00 07/17/20 09:17 Pantoprazole 40 Mg Vial IVP 40 mg DAILY GRAZYNA Administration - Exam General Appearance: NAD Eye: PERRL ENT: normocephalic atraumatic Neck: supple Heart: RRR, no murmur Respiratory: CTAB Gastrointestinal: soft Extremities: no cyanosis Skin: normal turgor Neurological: speech deficit Neurological - other findings: Right upper extremity flaccid Psychiatric: normal affect Hosp A/P - Plan The patient is unfortunate 75 years old patient Afghan female who has significant past medical history of Alzheimer's dementia, hypertension, who presented with altered mental status, and right hemiplegia, and expressive aphasia. Initial work-up, CT showed low left frontal lobe hematoma with surrounding edema and mass-effect with minimal [id number] midline shift. (1) Intracranial hemorrhage Code(s): I62.9 - NONTRAUMATIC INTRACRANIAL HEMORRHAGE, UNSPECIFIED Status: Acute --cont supportive cares. Diet advanced by on SP recommendation --d/w , considering rehab. Will consult CM --appreciate Neurosurgery/Neurology input (2) Altered mental status Code(s): R41.82 - ALTERED MENTAL STATUS, UNSPECIFIED Status: Acute --secondary to above. cont supportive cares. (3) Essential HTN --cont metoprolol. BP stable (4) Alzheimer dementia --Resume home medications DVT ppx: SCD GI ppx: PPI Code Status: DNR Anticipated Dispo: Inpatient rehab versus SNF
[2020-07-18] MEDS: Sodium Chloride 0.9% 1,000 ML IV SCH (04:41)
[2020-07-18] MEDS: Pantoprazole 40 MG VIAL IVP SCH (08:26)
[2020-07-18] MEDS: Metoprolol Tartrate 25 MG TAB PO SCH ×2 (08:26→20:09)
[2020-07-18] MEDS: Donepezil HCl 10 MG TAB PO SCH (08:26)
--- NOTE | 2020-07-18 13:44 | PDOC.HOSPP ---
- Subjective Subjective: Patient was seen examined at bedside. Mental status back to baseline, she still experience expressive aphasia. She is tolerating diet, however requires assistance with feeding. Discussed with her at bedside, he is hoping to get her to into inpatient rehab - Objective Vital Signs & Weight: Vital Signs (12 hours) Temp Pulse Resp BP Pulse Ox 07/18/20 11:40 97.9 F 66 18 128/73 97 07/18/20 07:52 98.9 F 72 18 126/68 98 07/18/20 03:59 98.0 F 71 16 120/60 92 L Weight Admit Weight 134 lb Weight 128 lb 8.472 oz Most Recent Monitor Data Heart Rate from ECG 78 NIBP 135/74 NIBP BP-Mean 94 Respiration from ECG 16 SpO2 100 I&O: 07/17/20 07/18/20 07/19/20 06:59 06:59 06:59 Intake Total 480 1166 Output Total 810 750 Balance -330 416 Result Diagrams: 07/14/20 03:17 07/14/20 03:17 Radiology Reviewed by me: Yes EKG Reviewed by me: Yes Hospitalist ROS - Medication Medications: Active Medications Generic Name Dose Route Start Last Admin Trade Name Freq PRN Reason Stop Dose Admin Donepezil HCl 10 mg 07/18/20 09:00 07/18/20 08:26 Donepezil Hcl 10 Mg Tab PO 10 mg DAILY GRAZYNA Administration Nicardipine HCl 25 mg/ Sodium 260 mls @ 0 mls/hr 07/13/20 10:21 07/14/20 00:06 Chloride IVPB 260 mls INF PRN Administration SBP > 140 Protocol Titrate Sodium Chloride 1,000 mls @ 40 mls/hr 07/15/20 03:00 07/18/20 04:41 Normal Saline 0.9% IV 1,000 mls .Q24H GRAZYNA Administration Labetalol HCl 10 mg 07/13/20 21:26 07/16/20 10:12 Labetalol Hcl 100 Mg/20 Ml Vial SLOW IVP 10 mg Q2H PRN Administration SBP > 140 Memantine 10 mg 07/18/20 09:00 07/18/20 08:26 Memantine Hcl 10 Mg Tab PO 10 mg DAILY GRAZYNA Administration Metoprolol Tartrate 25 mg 07/13/20 21:00 07/18/20 08:26 Metoprolol Tartrate 25 Mg Tab PO 25 mg BID GRAZYNA Administration Pantoprazole Sodium 40 mg 07/14/20 09:00 07/18/20 08:26 Pantoprazole 40 Mg Vial IVP 40 mg DAILY GRAZYNA Administration - Exam General Appearance: NAD Eye: PERRL ENT: normocephalic atraumatic Neck: supple Heart: RRR, no murmur Respiratory: CTAB Gastrointestinal: soft, non-tender Extremities: no cyanosis, no clubbing Skin: normal turgor Neurological: speech deficit Neurological - other findings: Right UE flaccid Musculoskeletal: normal tone Psychiatric: normal affect, normal behavior Hosp A/P - Plan The patient is unfortunate 75 years old patient [place] female who has significant past medical history of Alzheimer's dementia, hypertension, who presented with altered mental status, and right hemiplegia, and expressive aphasia. Initial work-up, CT showed low left frontal lobe hematoma with s urrounding edema and mass-effect with minimal [id number] midline shift. (1) Intracranial hemorrhage Code(s): I62.9 - NONTRAUMATIC INTRACRANIAL HEMORRHAGE, UNSPECIFIED Status: Acute --cont supportive cares. Diet advanced by on SP recommendation, tolerated it well --d/w , considering rehab. Will consult CM --appreciate Neurosurgery/Neurology input --pending inpt rehab (2) Altered mental status Code(s): R41.82 - ALTERED MENTAL STATUS, UNSPECIFIED Status: Acute --secondary to above. cont supportive cares. (3) Essential HTN --cont metoprolol. BP stable (4) Alzheimer dementia --Resume home medications DVT ppx: SCD GI ppx: PPI Code Status: DNR Anticipated Dispo: Inpatient rehab versus SNF
[2020-07-19] MEDS: Sodium Chloride 0.9% 1,000 ML IV SCH (04:35)
[2020-07-19 05:33] VITALS: BMI 25.0
[2020-07-19] MEDS: Metoprolol Tartrate 25 MG TAB PO SCH ×2 (09:17→21:31)
[2020-07-19] MEDS: Pantoprazole 40 MG VIAL IVP SCH (09:17)
[2020-07-19] MEDS: Donepezil HCl 10 MG TAB PO SCH (09:17)
--- NOTE | 2020-07-19 12:20 | CT ---
Exam: Head CT without contrast HISTORY: Follow-up intracranial hemorrhage. COMPARISON: 07/15/2020 FINDINGS: Hemorrhage: Redemonstration of a large intraparenchymal hematoma involving the left frontal and tempo ral region. Hematoma measures 4.4 x 5.0 cm. Brain parenchyma: Stable edema involving the left cerebrum. No significant change with regard to the right cerebrum. Ventricular system: Ventricles and sulci are patent and symmetric. Calvarium: Intact. Sinuses and mastoid air cells: Adequate aeration. IMPRESSION: No significant interval change. Redemonstration of intraparenchymal hemorrhage and vasogenic edema.
--- NOTE | 2020-07-19 12:25 | PDOC.NEUPN ---
- Subjective Encounter Date: 07/19/20 Subjective: Ms. Arce is doing much better today. She is sitting at the side of the bed participating with physical therapy which is significant improvement. She continues to have right hemiparesis. - Objective Vital Signs & Weight: Vital Signs (12 hours) Temp Pulse Resp BP Pulse Ox 07/19/20 11:45 98.3 F 68 16 127/77 98 07/19/20 07:10 98.5 F 64 16 141/68 H 100 07/19/20 04:00 97.9 F 70 14 93/61 94 L Weight Admit Weight 134 lb Weight 128 lb Most Recent Monitor Data Heart Rate from ECG 78 NIBP 135/74 NIBP BP-Mean 94 Respiration from ECG 16 SpO2 100 I&O: 07/18/20 07/19/20 07/20/20 06:59 06:59 06:59 Intake Total 1166 1220 Output Total 750 850 Balance 416 370 Result Diagrams: 07/14/20 03:17 07/14/20 03:17 Radiology Reviewed by me: Yes EKG Reviewed by me: Yes ROS - Review of Systems ROS unobtainable: due to mental status (Speech deficit) - Medication Medications: Active Medications Generic Name Dose Route Start Last Admin Trade Name Freq PRN Reason Stop Dose Admin Acetaminophen 650 mg 07/13/20 10:21 07/18/20 20:14 Acetaminophen 325 Mg Tab PO 650 mg Q4H PRN Administration Headache/Fever/Mild Pain (1-3) Donepezil HCl 10 mg 07/18/20 09:00 07/19/20 09:17 Donepezil Hcl 10 Mg Tab PO 10 mg DAILY GRAZYNA Administration Nicardipine HCl 25 mg/ Sodium 260 mls @ 0 mls/hr 07/13/20 10:21 07/14/20 00:06 Chloride IVPB 260 mls INF PRN Administration SBP > 140 Protocol Titrate Sodium Chloride 1,000 mls @ 40 mls/hr 07/15/20 03:00 07/19/20 04:35 Normal Saline 0.9% IV 1,000 mls .Q24H GRAZYNA Administration Labetalol HCl 10 mg 07/13/20 21:26 07/16/20 10:12 Labetalol Hcl 100 Mg/20 Ml Vial SLOW IVP 10 mg Q2H PRN Administration SBP > 140 Memantine 10 mg 07/18/20 09:00 07/19/20 09:17 Memantine Hcl 10 Mg Tab PO 10 mg DAILY GRAZYNA Administration Metoprolol Tartrate 25 mg 07/13/20 21:00 07/19/20 09:17 Metoprolol Tartrate 25 Mg Tab PO 25 mg BID GRAZYNA Administration Pantoprazole Sodium 40 mg 07/14/20 09:00 07/19/20 09:17 Pantoprazole 40 Mg Vial IVP 40 mg DAILY GRAZYNA Administration - Exam General Appearance: awake alert Eye: PERRL ENT: normocephalic atraumatic Neck: supple Respiratory: CTAB Cardiovascular: RRR Gastrointestinal: soft Extremities: no cyanosis Skin: normal turgor Neurological: facial droop, hemiplegia, speech deficit Neurological - other findings: Right-sided focal deficits Musculoskeletal: normal tone, no muscle wasting PSYCH: normal affect, normal behavior Results - Labs Result Diagrams: 07/14/20 03:17 07/14/20 03:17 Lab results: WBC 7.6 thou/uL (4.8-10.8) 07/14/20 03:17 Hgb 15.0 g/dL (12.0-16.0) 07/14/20 03:17 Hct 45.8 % (36.0-47.0) 07/14/20 03:17 MCV 88.4 fL (78.0-98.0) 07/14/20 03:17 Plt Count 207 thou/uL (130-400) 07/14/20 03:17 Neutrophils % 73.1 % (42.0-75.0) 07/14/20 03:17 Sodium 142 mmol/L (136-145) 07/14/20 03:17 Potassium 3.7 mmol/L (3.5-5.1) 07/14/20 03:17 Chloride 110 mmol/L (98-107) H 07/14/20 03:17 Carbon Dioxide 21 mmol/L (23-31) L 07/14/20 03:17 BUN 14 mg/dL (9.8-20.1) 07/14/20 03:17 Creatinine 0.83 mg/dL (0.6-1.1) 07/14/20 03:17 Glucose 135 mg/dL (83-110) H 07/14/20 03:17 Calcium 9.1 mg/dL (7.8-10.44) 07/14/20 03:17 Urine Ketones 20 mg/dL (Negative) A 07/13/20 22:20 Urine Blood 1+ (Negative) A 07/13/20 22:20 Urine Nitrite Negative (Negative) 07/13/20 22:20 Ur Leukocyte Esterase Negative Leonor/uL (Negative) 07/13/20 22:20 Urine RBC 11-20 HPF (0-3) A 07/13/20 22:20 Urine WBC 0-3 HPF (0-3) 07/13/20 22:20 Ur Squamous Epith Cells None Seen HPF (0-3) 07/13/20 22:20 Urine Bacteria None Seen HPF (None Seen) 07/13/20 22:20 - Radiology Interpretation CT scan - head Additional Comment: Head CT reviewed which did not show any interval change in the left intraparen chymal hemorrhage with vasogenic edema. No stroke or new bleed. PN A/P (1) Intracranial hemorrhage Code(s): I62.9 - NONTRAUMATIC INTRACRANIAL HEMORRHAGE, UNSPECIFIED Status: Acute (2) Right hemiplegia Code(s): G81.91 - HEMIPLEGIA, UNSPECIFIED AFFECTING RIGHT DOMINANT SIDE Status: Acute (3) Altered mental status Code(s): R41.82 - ALTERED MENTAL STATUS, UNSPECIFIED Status: Acute - Plan Daily Plan: plan discussed w/ family ( at bedside), PT/OT, speech therapy, DVT proph w/SCDs Ms. Arce is a 75-year-old female with history significant for Alzheimer's dementia hypertension presented with altered mental status and right hemiplegia with speech deficit. Head CT showed large intraparenchymal hemorrhage on the left. Significant improvement in patient mental status and improvement in neurological deficits since admission. She is alert today and participating with physical therapy. Repeat head CT today was reviewed which showed stable hemorrhage with no new bleed or stroke. Neurosurgery on board. Patient stable Continue neurochecks every [address] if the condition declines. EEG reviewed which was negative for seizure activity. Telemetry to rule out arrhythmias. 2D echo showed normal ejection fraction with no thrombus or PFO. Avoid antiplatelets and anticoagulants due to recent bleed. Continue PT/OT/speech. Patient completed modified barium swallow. Speech is on board and tolerating modified diet well. Continue medical management per primary team and neurosurgery. Case management on board regarding discharge planning. Plan discussed in detail with the nursing staff and also with the at bedside
--- NOTE | 2020-07-19 14:40 | PDOC.HOSPP ---
- Subjective Subjective: Patient was seen examined at bedside. No acute events overnight. Discussed with at bedside. Also telehealth case manager, with regard to discharge planning. Repeated CT scan today, no significant change. Patient is tolerating diet. - Objective Vital Signs & Weight: Vital Signs (12 hours) Temp Pulse Resp BP BP Pulse Ox 07/19/20 11:45 98.3 F 68 16 127/77 98 07/19/20 11:00 127/77 07/19/20 07:10 98.5 F 64 16 141/68 H 100 07/19/20 04:00 97.9 F 70 14 93/61 94 L Weight Admit Weight 134 lb Weight 128 lb Most Recent Monitor Data Heart Rate from ECG 78 NIBP 135/74 NIBP BP-Mean 94 Respiration from ECG 16 SpO2 100 I&O: 07/18/20 07/19/20 07/20/20 06:59 06:59 06:59 Intake Total 1166 1220 177 Output Total 750 850 Balance 416 370 177 Result Diagrams: 07/14/20 03:17 07/14/20 03:17 Radiology Reviewed by me: Yes EKG Reviewed by me: Yes Hospitalist ROS - Medication Medications: Active Medications Generic Name Dose Route Start Last Admin Trade Name Freq PRN Reason Stop Dose Admin Acetaminophen 650 mg 07/13/20 10:21 07/18/20 20:14 Acetaminophen 325 Mg Tab PO 650 mg Q4H PRN Administration Headache/Fever/Mild Pain (1-3) Donepezil HCl 10 mg 07/18/20 09:00 07/19/20 09:17 Donepezil Hcl 10 Mg Tab PO 10 mg DAILY GRAZYNA Administration Nicardipine HCl 25 mg/ Sodium 260 mls @ 0 mls/hr 07/13/20 10:21 07/14/20 0 0:06 Chloride IVPB 260 mls INF PRN Administration SBP > 140 Protocol Titrate Sodium Chloride 1,000 mls @ 40 mls/hr 07/15/20 03:00 07/19/20 04:35 Normal Saline 0.9% IV 1,000 mls .Q24H GRAZYNA Administration Labetalol HCl 10 mg 07/13/20 21:26 07/16/20 10:12 Labetalol Hcl 100 Mg/20 Ml Vial SLOW IVP 10 mg Q2H PRN Administration SBP > 140 Memantine 10 mg 07/18/20 09:00 07/19/20 09:17 Memantine Hcl 10 Mg Tab PO 10 mg DAILY GRAZYNA Administration Metoprolol Tartrate 25 mg 07/13/20 21:00 07/19/20 09:17 Metoprolol Tartrate 25 Mg Tab PO 25 mg BID GRAZYNA Administration - Exam General Appearance: NAD Eye: PERRL ENT: normocephalic atraumatic Neck: supple Heart: RRR Respiratory: CTAB Gastrointestinal: soft, non-tender Extremities: no cyanosis Skin: normal turgor Neurological: speech deficit Neurological - other findings: Right upper extremity flaccid Psychiatric: normal affect Hosp A/P - Plan The patient is unfortunate 75 years old patient [place] female who has significant past medical history of Alzheimer's dementia, hypertension, who presented with altered mental status, and right hemiplegia, and expressive aphasia. Initial work-up, CT showed low left frontal lobe hematoma with surrounding edema and mass-effect with minimal [id number] midline shift. (1) Intracranial hemorrhage Code(s): I62.9 - NONTRAUMATIC INTRACRANIAL HEMORRHAGE, UNSPECIFIED Status: Acute --cont supportive cares. Diet advanced by on SP recommendation, tolerated it well --Repeated CT scan, stable. --appreciate Neurosurgery/Neurology input --pending inpt rehab (2) Altered mental status Code(s): R41.82 - ALTERED MENTAL STATUS, UNSPECIFIED Status: Acute --secondary to above. cont supportive cares. (3) Essential HTN --cont metoprolol. BP stable (4) Alzheimer dementia --Resume home medications DVT ppx: SCD GI ppx: PPI Code Status: DNR Anticipated Dispo: Inpatient rehab versus SNF
[2020-07-20] MEDS: Sodium Chloride 0.9% 1,000 ML IV SCH (05:28)
[2020-07-20] MEDS ORDERED: Pantoprazole 40 MG GRANULES PACKET PO SCH (09:00)
[2020-07-20] MEDS: Metoprolol Tartrate 25 MG TAB PO SCH ×2 (09:34→20:06)
[2020-07-20] MEDS: Donepezil HCl 10 MG TAB PO SCH (09:34)
--- NOTE | 2020-07-20 12:24 | ULT ---
BILATERAL CAROTID DUPLEX ULTRASOUND: HISTORY: Stroke TECHNIQUE: Grayscale, color-flow and spectral Doppler ultrasound imaging of the extracranial carotid artery syst ems was performed bilaterally. FINDINGS: There is plaque formation on the right. The peak systolic velocity in the right ICA measures 54 cm/s with an end-diastolic velocity of 15 cm/ s and a systolic ratio of 0.89. The peak systolic velocity in the left ICA measures 48 cm/s with an end-diastolic velocity of 13 cm/s and a systolic ratio of 0.83. Flow in both vertebral arteries remains antegrade. IMPRESSION: No evidence of hemodynamically significant stenosis.
--- NOTE | 2020-07-20 12:29 | PDOC.NEUPN ---
- Subjective Encounter Date: 07/20/20 Subjective: No acute complaints in the last 24 hours. Patient doing well and is at bedside. - Objective Vital Signs & Weight: Vital Signs (12 hours) Temp Pulse Resp BP Pulse Ox 07/20/20 11:20 98.7 F 72 16 134/69 100 07/20/20 07:04 98.4 F 74 20 132/77 100 07/20/20 04:00 98.7 F 76 15 132/74 92 L Weight Admit Weight 134 lb Weight 128 lb Most Recent Monitor Data Heart Rate from ECG 78 NIBP 135/74 NIBP BP-Mean 94 Respiration from ECG 16 SpO2 100 I&O: 07/19/20 07/20/20 07/21/20 06:59 06:59 06:59 Intake Total 1220 177 Output Total 850 Balance 370 177 Result Diagrams: 07/14/20 03:17 07/14/20 03:17 Radiology Reviewed by me: Yes EKG Reviewed by me: Yes ROS - Review of Systems ROS unobtainable: due to mental status (Aphasic) - Medication Medications: Active Medications Generic Name Dose Route Start Last Admin Trade Name Freq PRN Reason Stop Dose Admin Acetaminophen 650 mg 07/13/20 10:21 07/18/20 20:14 Acetaminophen 325 Mg Tab PO 650 mg Q4H PRN Administration Headache/Fever/Mild Pain (1-3) Donepezil HCl 10 mg 07/18/20 09:00 07/20/20 09:34 Donepezil Hcl 10 Mg Tab PO 10 mg DAILY GRAZYNA Administration Nicardipine HCl 25 mg/ Sodium 260 mls @ 0 mls/hr 07/13/20 10:21 07/14/20 00:06 Chloride IVPB 260 mls INF PRN Administration SBP > 140 Protocol Titrate Sodium Chloride 1,000 mls @ 40 mls/hr 07/15/20 03:00 07/20/20 05:28 Normal Saline 0.9% IV 1,000 mls .Q24H GRAZYNA Administration Labetalol HCl 10 mg 07/13/20 21:26 07/16/20 10:12 Labetalol Hcl 100 Mg/20 Ml Vial SLOW IVP 10 mg Q2H PRN Administration SBP > 140 Memantine 10 mg 07/18/20 09:00 07/20/20 09:34 Memantine Hcl 10 Mg Tab PO 10 mg DAILY GRAZYNA Administration Metoprolol Tartrate 25 mg 07/13/20 21:00 07/20/20 09:34 Metoprolol Tartrate 25 Mg Tab PO 25 mg BID GRAZYNA Administration Pantoprazole Sodium 40 mg 07/20/20 09:00 07/20/20 09:34 Pantoprazole 40 Mg Granules Packet PO 40 mg DAILY GRAZYNA Administration - Exam General Appearance: awake alert Eye: PERRL ENT: normocephalic atraumatic Neck: supple Respiratory: CTAB Cardiovascular: RRR Gastrointestinal: soft Extremities: no cyanosis, no clubbing Skin: normal turgor Neurological: no new deficit, facial droop, hemiplegia, speech deficit Musculoskeletal: normal tone, no muscle wasting PSYCH: normal affect, normal behavior (Aphasic), not oriented Results - Labs Result Diagrams: 07/14/20 03:17 07/14/20 03:17 Lab results: WBC 7.6 thou/uL (4.8-10.8) 07/14/20 03:17 Hgb 15.0 g/dL (12.0-16.0) 07/14/20 03:17 Hct 45.8 % (36.0-47.0) 07/14/20 03:17 MCV 88.4 fL (78.0-98.0) 07/14/20 03:17 Plt Count 207 thou/uL (130-400) 07/14/20 03:17 Neutrophils % 73.1 % (42.0-75.0) 07/14/20 03:17 Sodium 142 mmol/L (136-145) 07/14/20 03:17 Potassium 3.7 mmol/L (3.5-5.1) 07/14/20 03:17 Chloride 110 mmol/L (98-107) H 07/14/20 03:17 Carbon Dioxide 21 mmol/L (23-31) L 07/14/20 03:17 BUN 14 mg/dL (9.8-20.1) 07/14/20 03:17 Creatinine 0.83 mg/dL (0.6-1.1) 07/14/20 03:17 Glucose 135 mg/dL (83-110) H 07/14/20 03:17 Calcium 9.1 mg/dL (7.8-10.44) 07/14/20 03:17 Urine Ketones 20 mg/dL (Negative) A 07/13/20 22:20 Urine Blood 1+ (Negative) A 07/13/20 22:20 Urine Nitrite Negative (Negative) 07/13/20 22:20 Ur Leukocyte Esterase Negative Leonor/uL (Negative) 07/13/20 22:20 Urine RBC 11-20 HPF (0-3) A 07/13/20 22:20 Urine WBC 0-3 HPF (0-3) 07/13/20 22:20 Ur Squamous Epith Cells None Seen HPF (0-3) 07/13/20 22:20 Urine Bacteria None Seen HPF (None Seen) 07/13/20 22:20 - Radiology Interpretation CT scan - head Additional Comment: Head CT repeated yesterday showed stable left intraparenchymal hemorrhage with no evidence of new bleed, extension of old bleed or acute stroke. PN A/P (1) Intracranial hemorrhage Code(s): I62.9 - NONTRAUMATIC INTRACRANIAL HEMORRHAGE, UNSPECIFIED Status: Acute (2) Right hemiplegia Code(s): G81.91 - HEMIPLEGIA, UNSPECIFIED AFFECTING RIGHT DOMINANT SIDE Status: Acute (3) Altered mental status Code(s): R41.82 - ALTERED MENTAL STATUS, UNSPECIFIED Status: Acute - Plan Daily Plan: plan discussed w/ family, PT/OT ( at bedside), speech therapy , DVT proph w/SCDs Ms. Arce is a 75-year-old female with history significant for Alzheimer's dementia hypertension presented with altered mental status and right hemiplegia with speech deficit. Head CT showed large intraparenchymal hemorrhage on the left. Significant improvement in patient mental status and improvement in neurological deficits since admission. is at bedside and pleased with the progress. Repeat head CT on 07/19/2020 showed stable hemorrhage with no new bleed or stroke. Neurosurgery on board. Patient stable Continue neurochecks every [address] if the condition declines. EEG reviewed which was negative for seizure activity. Telemetry to rule out arrhythmias. 2D echo showed normal ejection fraction with no thrombus or PFO. Carotid Dopplers pending to rule out hemodynamically significant stenosis Avoid antiplatelets and anticoagulants due to recent bleed. Continue PT/OT/speech. Patient completed modified barium swallow. Speech is on board and tolerating modified diet well. Continue medical management per primary team and neurosurgery. Case management on board regarding discharge planning. Plan discussed in detail with the nursing staff , at bedside and also with the primary attending Dr. Gonzalez
--- NOTE | 2020-07-20 12:34 | PDOC.FMACP ---
Advance Care Planning - Problem (1) Palliative care encounter Status: Acute Code(s): Z51.5 - ENCOUNTER FOR PALLIATIVE CARE (2) Altered mental status Status: Acute Code(s): R41.82 - ALTERED MENTAL STATUS, UNSPECIFIED (3) Intracranial hemorrhage Status: Acute Code(s): I62.9 - NONTRAUMATIC INTRACRANIAL HEMORRHAGE, UNSPECIFIED (4) Right hemiplegia Status: Acute Code(s): G81.91 - HEMIPLEGIA, UNSPECIFIED AFFECTING RIGHT DOMINANT SIDE - Note Participants: family, palliative care Summary: Palliative Care addressed Advanced Care Planning. The diagnosis, prognosis and goals of care were discussed. Appropriate forms and documentation to accomplish the goals of care were discussed. All questions were answered. Confirmed DNAR status and completed OOHDNAR. Electing to transition to [facility] to optimize functional status. Communicated with Dr Gonzalez Please also refer to Palliative care notes in note section. Time Spent (mins): 15
--- NOTE | 2020-07-20 14:08 | PDOC.DS.DS ---
Provider - Provider Date of Admission: 07/13/20 10:02 Admitting Provider: Farideh Arcos MD Consultations: Neurology (Dr. Ceballos) Course - Hospital Course Hospital Course: DISCHARGE DIAGNOSES: 1. Intracranial hemorrhage-resulted with expressive aphasia, right upper extremity flaccid 2. Altered mental status-secondary to above 3. Essential hypertension 4. Alzheimer dementia 5. GERD PERTINENT IMAGING STUDIES: 1. Carotic Doppler: Negative for hemodynamically significant stenosis 2. CT head 07/13/20: Interval increase in size of large parenchymal hematoma in the left frontal lobe with increase in adjacent edema as well as increased sulcal effacement. Slight shift of midline 3. Repeated CT: No significant interval change in nonspecific large intra-axial hematoma within the left frontal lobe with surrounding vasogenic edema. 4. Repeated CT on 07/15/2020: Large spontaneous left upper cerebral intra-axial hematoma with vasogenic edema, mass-effect, minimal subfalcine herniation 5. No significant interval change. Redemonstration of intraparenchymal hemorrhage and vasogenic edema 2D echo: EF 55-60%. E/a flow reversal noted. Suggestive of diastolic dysfunction. HISTORY OF PRESENT ILLNESS AND BRIEF HOSPITAL COURSE: The patient is unfortunate 75 years old [place] female who has significant past medical histories of dementia, GERD, who was presented to the ED with acute onset of right hemiplegia, and speech deficit. Further work-up found as he had 4 x 4.5 cm intracranial parenchymal hemorrhage in the left parietal lobe. He was subsequently admitted to ICU. Neurosurgery was consulted. No surgical intervention was indicated. Repeated CT appeared to be stable. Patient was also seen by neurologist, Dr. Ceballos. Her blood pressure has been remained stable. No evidence of arrhythmia on telemetry. 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 No significant improvement in her speech, she remains expressive aphasic, and her right upper extremity remains flaccid on exam. At this time, patient has been accepted to inpatient rehab for further physical therapy. PROCEDURE PERFORMED: NONE DISCHARGE CONDITION: STABLE DISPOSITION: HOME PHYSICAL EXAM: General Appearance: Alert, oriented, resting comfortably, no apparent distress, well developed/nourished. HEENT: Normocephalic/atraumatic, moist mucous membrane, normal ENT inspection, normal tones. PERRLA, no scleral icterus, normal conjunctiva Neck: Supple, normal inspection, no JVD Respiratory: Lungs are clear bilaterally, normal breath sounds, no accessory muscle use Cardiovascular: Regular rate, regular rhythm, no murmur, no rubs Abdomen: Soft, nontender, nondistended, normal bowel sounds, no organomegaly, no guarding no rebound Extremities: No clubbing, no cyanosis, no edema Psych/Mental Status: Normal affect, speech impaired Neurologic: Expressive aphasia, right upper extremity flaccid Skin: Warm/Dry, Normal Color, no rashes DISCHARGE TIME SPENT: >30 MINUTES Resuscitation Status: 07/15/20 07:15 Resuscitation Status Routine Co-Sign Provider: Resuscitation Status: DNAR: NO Resuscitation Discussed with: Patient's , nurse at bedside - Labs Lab Results: 07/14/20 03:17 07/14/20 03:17 - Physical Exam Vitals: Vital Signs (12 hours) Temp Pulse Pulse Pulse Resp BP BP 07/20/20 11:20 98.7 F 72 16 07/20/20 10:20 73 73 133/82 130/70 07/20/20 07:04 98.4 F 74 20 07/20/20 04:00 98.7 F 76 15 BP Pulse Ox 07/20/20 11:20 134/69 100 07/20/20 10:20 07/20/20 07:04 132/77 100 07/20/20 04:00 132/74 92 L Weight Admit Weight 134 lb Weight 128 lb Most Recent Monitor Data Heart Rate from ECG 78 NIBP 135/74 NIBP BP-Mean 94 Respiration from ECG 16 SpO2 100 Physical Exam: The patient was seen and examined on the day of discharge. Plan - Discharge Medications Prescriptions: Metoprolol Tartrate [Lopressor] 25 mg PO BID #60 tab Home Medications: Medication Instructions Recorded Confirmed Type Donepezil HCl [Aricept] 10 mg PO DAILY 07/17/20 07/17/20 History Memantine HCl [Namenda] 10 mg PO DAILY 07/17/20 07/17/20 History Omeprazole 20 mg PO DAILY 07/17/20 07/17/20 History Psyllium Husk [Metamucil] 0.4 gm PO DAILY 07/17/20 07/17/20 History Metoprolol Tartrate [Lopressor] 25 mg PO BID #60 tab 07/20/20 Rx Allergies: No Known Allergies Allergy (Verified 07/13/20 21:23) - Discharge Instructions Discharge Instructions:: Please follow up with PCP after discharge from rehab. Activity:: Activity as Tolerated Nourishment:: Heart Healthy Diet - Follow up Plan Disposition: REHABILITATION INPATIENT Quality - Care Measures CORE MEASURES:: N/A - Stroke/TIA Did you prescribe antithrombotic therapy?: No Specify reason for no DC antithrombotic therapy: Treatment not indicated Did you prescribe anticoagulant for A Fib/Flutter?: No Specify reason for no DC anticoagulant: Treatment not indicated
[2020-07-20 19:54] VITALS: BP 137/65; TEMP 99.5
--- NOTE | 2020-07-22 06:11 | PQF ---
CLINICAL DOCUMENTATION CLARIFICATION FORM: Dear : Roosevelt Gonzalez Date / Time: 07/22/20 0611 Please exercise your independent, professional judgment in responding to the clarification form. Clinical indicators are provided on the bottom of this form for your review Please check appropriate box(es): [ X ] Encephalopathy: Etiology: [ ] Metabolic [ ] Toxic [X ] In the setting of underlying dementia [ ] Unspecified [ ] Other (please specify) [ ] Transient Alteration of Awareness [ ] Other diagnosis,please specify [ ] Unable to determine In addition, please specify: Present on Admission (POA): [X ] Yes [ ] No [ ] Unable to determine Physician Signature: Date/Time: For continuity of documentation, please document condition throughout progress notes and discharge summary. Thank You. To be completed by CDI/Coding staff for physician review: Present Clinical Indicators - Signs / Symptoms / Labs Results and Location in Medical Record [X] BP 136/83, Pulse 101, Resp 19, Temp 98.9 Vital signs 07/13 [X] CT Brain: Interval increase in size of large parenchymal hematoma in left frontal lobe increase in adjacent edema as well as increase in sulcal effacement Imaging Dr Hicks 07/13 [X] Altered mental status HPN p-3 07/18 Dr Cedeño [X] Not oriented PN 07/20 Present Risk Factors Results and Location in Medical Record [X] 75 year-old Female H&P p1 07/13 Dr Arcos [X] Alzheimer dementia H&P p1 07/13 Dr Arcos [X] Intraparenchymal bleed H&P p2 07/13 Dr Arcos [X] HTN H&P p2 07/13 Dr Arcos Present Treatments Results and Location in Medical Record [X] IVF NS 1L MAR 07/15 [X] Neuro consult Consult Dr Ceballos 07/13 [X] Admitted to ICU H&P p2 07/13 Dr Arcos [X] Continue neurocheck every 4 hrs PN 07/20 CDS/Aws Architect Signature: Nancy Guerrero Eulalianakiaandre Phone #: [phone] Date/Time: 07/22/2020 0611 This is a permanent part of the Medical Record [facility]
== END 2020-07-20 21:56 | DRG 64 ==
LOC: ERS 09:20 → ERHOLD 10:02 → CCU 20:51 → 2SE 07-16 19:15
PROVIDERS: ADMIT Internal Medicine; ATTEND Family Medicine
PROC: 0T9B70Z Drainage of Bladder with Drainage Device, Via Natural or Artificial Opening (ICD-10-PCS; principal; 2020-07-13)
DX: I61.1 Nontraumatic intracerebral hemorrhage in hemisphere, cortical (principal); G93.6 Cerebral edema; R47.01 Aphasia; G81.91 Hemiplegia, unspecified affecting right dominant side; G93.49 Other encephalopathy; Z20.828 Contact with and (suspected) exposure to other viral communicable diseases; Z51.5 Encounter for palliative care; Z66 Do not resuscitate; G30.9 Alzheimer's disease, unspecified; I10 Essential (primary) hypertension; F02.80 Dementia in other diseases classified elsewhere, unspecified severity, without behavioral disturbance, psychotic disturbance, mood disturbance, and anxiety; K21.9 Gastro-esophageal reflux disease without esophagitis; R29.810 Facial weakness; R47.81 Slurred speech; Z98.51 Tubal ligation status; Z79.899 Other long term (current) drug therapy
CPT/HCPCS: 36415; 36416; 70450; 71045; 74230; 80048; 80053; 80061; 81001; 84484; 85025; 85610; 85730; 93005; 93306; 93880; 95712; 95819; 95957; C9113; J7050; U0002

== ENCOUNTER 2021-04-17 10:08 | Inpatient (IN) | payer MEDICARE, BC ==
[~2021-04-17 10:08] MED LIST: Iopamidol-370 76% 500 ML 1 ML ONE
[2021-04-17] MEDS ORDERED: Acetaminophen 650 MG Suppository ONE (10:53)
[2021-04-17 11:07] LABS: Hemoglobin 14.5 g/dL (12.0-16.0); Mean Corpuscular HGB CONC 36.5 g/dL (32.0-36.0); Mean Corpuscular Hemoglobin 33.2 pg (27.0-31.0); Mean Corpuscular Volume 90.9 fL (78.0-98.0); RBC Distribution Width 12.3 % (11.5-14.5); Red Blood Cell (RBC) Count 4.36 mill/uL (4.20-5.40)
[2021-04-17 11:26] LABS: ALT (SGPT) 21 U/L (8-55); AST (SGOT) 33 U/L (5-34); Albumin 3.8 g/dL (3.4-4.8); Alkaline Phosphatase 46 U/L (40-110); Anion Gap 16 mmol/L (10-20); BUN (Urea Nitrogen) 10 mg/dL (9.8-20.1); Bilirubin, Total 0.7 mg/dL (0.2-1.2); CK (CPK) 27 U/L (29-168); Calc. Creatinine Clearance 0 mL/min (70-130); Calcium 9.4 mg/dL (7.8-10.44); Carbon Dioxide 23 mmol/L (23-31); Chloride 105 mmol/L (98-107); Globulin 3.8 g/dL (2.4-3.5); Glucose 118 mg/dL (83-110); Lipase 33 U/L (8-78); Potassium 3.4 mmol/L (3.5-5.1); Protein, Total 7.6 g/dL (5.8-8.1); Sodium 141 mmol/L (136-145)
[2021-04-17 11:49] LABS: Bilirubin Negative (Negative); Blood, Urine 1+ (Negative); Clarity Turbid (Clear); Glucose, Urine (Dipstick) Normal (Negative); Ketone, Urine Negative (Negative); Leukocyte Negative Leu/uL (Negative); Nitrite Negative (Negative); Protein, Urine (Dipstick) Negative (Neg-Trace); Specific Gravity, Urine 1.014 (1.002-1.036); Squamous Epithelial 0-3 HPF (0-3); Urobilinogen Normal mg/dL (Less than 2); WBC/HPF 0-3 HPF (0-3)
[2021-04-17 12:00] LABS: Bacteria/HPF Rare-Few HPF (None Seen)
[2021-04-17 12:10] LABS: #Lymphocytes 2.8 thou/uL (1.20-3.40); #Monocytes 0.6 thou/uL (0.11-0.59); #Neutrophils 3.7 thou/uL (1.40-6.50); %Basophils 0.4 % (0.0-1.0); %Eosinophils 0.6 % (0.0-10.0); %Lymphocytes 39.2 % (21.0-51.0); %Monocytes 8.6 % (0.0-10.0); %Neutrophils 51.2 % (42.0-75.0); Hemoglobin 14.9 g/dL (12.0-16.0); Mean Corpuscular HGB CONC 34.7 g/dL (32.0-36.0); Mean Corpuscular Hemoglobin 31.6 pg (27.0-31.0); Mean Corpuscular Volume 91.2 fL (78.0-98.0); Mean Platelet Volume 6.5 fL (7.4-10.4); Platelet Count 168 thou/uL (130-400); RBC Distribution Width 12.2 % (11.5-14.5); Red Blood Cell (RBC) Count 4.72 mill/uL (4.20-5.40); White Blood Cell (WBC) Count 7.2 thou/uL (4.8-10.8)
[2021-04-17 12:13] LABS: Band 3 % (5-11); Lymphocytes 41 % (21-51); MDiff Complete? YES; Monocytes 6 % (0-10); Neutrophil 41 % (42-75); Reactive Lymphocytes 9 % (0-10)
[2021-04-17 12:15] LABS: White Blood Cell (WBC) Count 4.8 thou/uL (4.8-10.8)
[2021-04-17] MEDS ORDERED: Cefepime 2 GM VIAL ONE (12:15)
[2021-04-17] MEDS ORDERED: Vancomycin 1 GM/200 ML BAG ONE (12:16)
[2021-04-17 12:25] LABS: INR-International Normal Ratio 1.1; PTT 32.5 sec (22.9-36.1); Prothrombin Time 14.5 sec (12.0-14.7)
[2021-04-17 12:26] LABS: D-Dimer Test 0.31 *mcg/mL (0.27-0.43)
[2021-04-17 12:39] LABS: SARS-CoV-2 NAA Rapid Test Not Detected (NotDetected)
[2021-04-17 14:29] LABS: Lactic Acid 5.3 mmol/L (0.5-2.2)
[2021-04-17] MEDS ORDERED: Sodium Chloride 0.9% 500 ML IV SCH (14:45)
[2021-04-17] MEDS ORDERED: Acetaminophen 650 MG Suppository PR PRN (14:50)
[2021-04-17] MEDS ORDERED: Ondansetron PF 4 MG/2 ML Vial IVP PRN (14:50)
[2021-04-17] MEDS ORDERED: Albuterol Sulfate 2.5 mg/3 ml Neb NEB PRN (14:57)
[2021-04-17] MEDS ORDERED: Enoxaparin Sodium 40 MG/0.4 ML SYRINGE SC SCH (16:00)
[2021-04-17] MEDS ORDERED: Sodium Chloride 0.9% (PF) 10 ML VIAL FS PRN (16:00)
[2021-04-17] MEDS ORDERED: Pantoprazole 40 MG VIAL IVP SCH (16:00)
[2021-04-17] MEDS ORDERED: Potassium Chloride 40 MEQ in Sodium Chloride 0.9% 250 ML 250 ML IVPB SCH (17:00)
[2021-04-17] MEDS: Sodium Chloride 0.9% 1,000 ML IV SCH ×2 (17:14→21:51)
[2021-04-17] MEDS ORDERED: Sodium Chloride 0.9% 1,000 ML IV SCH (17:30)
[2021-04-17 17:46] LABS: Strep pneumo Urine Ag NEGATIVE (NEGATIVE)
[2021-04-17] MEDS: Albuterol Sulfate 2.5 mg/3 ml Neb NEB SCH (19:21)
[2021-04-17 19:36] LABS: Lactic Acid 4.9 mmol/L (0.5-2.2)
[2021-04-17] MEDS: levETIRAcetam in NS 500 MG in Premix Bag 1 BAG IVPB SCH (20:18)
[2021-04-17] MEDS ORDERED: Vancomycin 1 GM in Premix Bag 1 BAG IVPB SCH (21:00)
[2021-04-17] MEDS: Clindamycin/D5W 900 MG in Premix Bag 1 BAG IVPB SCH (21:50)
[2021-04-18] MEDS: Cefepime 2 GM in Sodium Chloride 0.9% 100 ML IVPB SCH ×2 (00:30→13:31)
[2021-04-18] MEDS: Albuterol Sulfate 2.5 mg/3 ml Neb NEB SCH ×4 (00:56→19:20)
[2021-04-18] MEDS: Clindamycin/D5W 900 MG in Premix Bag 1 BAG IVPB SCH ×3 (05:30→21:48)
[2021-04-18] MEDS: Sodium Chloride 0.9% 1,000 ML IV SCH ×3 (05:30→22:38)
[2021-04-18 06:20] LABS: Band 26 % (5-11); Hemoglobin 13.8 g/dL (12.0-16.0); Lymphocytes 23 % (21-51); MDiff Complete? YES; Mean Corpuscular HGB CONC 35.1 g/dL (32.0-36.0); Mean Corpuscular Hemoglobin 31.9 pg (27.0-31.0); Mean Platelet Volume 6.8 fL (7.4-10.4); Monocytes 11 % (0-10); Neutrophil 40 % (42-75); Platelet Count 166 thou/uL (130-400); Platelet Morphology Comment Appears Adequate; RBC Distribution Width 12.2 % (11.5-14.5); Red Blood Cell (RBC) Count 4.32 mill/uL (4.20-5.40); White Blood Cell (WBC) Count 7.1 thou/uL (4.8-10.8)
[2021-04-18 06:22] LABS: Lactic Acid 3.8 mmol/L (0.5-2.2)
[2021-04-18 06:30] LABS: Anion Gap 12 mmol/L (10-20); BUN (Urea Nitrogen) 6 mg/dL (9.8-20.1); Calc. Creatinine Clearance 63 mL/min (70-130); Calcium 8.3 mg/dL (7.8-10.44); Carbon Dioxide 22 mmol/L (23-31); Chloride 110 mmol/L (98-107); Glucose 122 mg/dL (83-110); Sodium 141 mmol/L (136-145)
[2021-04-18 08:12] LABS: Magnesium 1.7 mg/dL (1.6-2.6)
[2021-04-18] MEDS ORDERED: Potassium Chloride 40 MEQ in Sodium Chloride 0.9% 250 ML 250 ML IVPB SCH (08:15)
[2021-04-18] MEDS: levETIRAcetam in NS 500 MG in Premix Bag 1 BAG IVPB SCH ×2 (09:07→20:25)
[2021-04-18] MEDS: Enoxaparin Sodium 40 MG/0.4 ML SYRINGE SC SCH (09:08)
[2021-04-18] MEDS: Pantoprazole 40 MG VIAL IVP SCH (09:08)
[2021-04-18] MEDS ORDERED: Magnesium 2 GM/50 ML 2 GM in Premix Bag 1 BAG IVPB SCH (10:00)
[2021-04-18] MEDS ORDERED: Vancomycin 1 GM in Premix Bag 1 BAG IVPB SCH (14:00)
[2021-04-18 18:13] LABS: Magnesium 2.3 mg/dL (1.6-2.6); Potassium 3.1 mmol/L (3.5-5.1)
[2021-04-19] MEDS: Cefepime 2 GM in Sodium Chloride 0.9% 100 ML IVPB SCH ×2 (00:33→13:02)
[2021-04-19] MEDS: Albuterol Sulfate 2.5 mg/3 ml Neb NEB SCH ×4 (02:18→20:01)
[2021-04-19] MEDS: Clindamycin/D5W 900 MG in Premix Bag 1 BAG IVPB SCH ×2 (05:13→14:17)
[2021-04-19] MEDS: Sodium Chloride 0.9% 1,000 ML IV SCH ×2 (05:35→18:22)
[2021-04-19 06:30] LABS: #Eosinphils 0.1 thou/uL (0.0-0.7); #Lymphocytes 2.3 thou/uL (1.20-3.40); #Monocytes 0.8 thou/uL (0.11-0.59); #Neutrophils 3.1 thou/uL (1.40-6.50); %Basophils 0.2 % (0.0-1.0); %Eosinophils 2.2 % (0.0-10.0); %Lymphocytes 36.5 % (21.0-51.0); %Neutrophils 48.2 % (42.0-75.0); Mean Corpuscular HGB CONC 34.3 g/dL (32.0-36.0); Mean Corpuscular Hemoglobin 31.4 pg (27.0-31.0); Mean Corpuscular Volume 91.4 fL (78.0-98.0); Mean Platelet Volume 6.9 fL (7.4-10.4); Platelet Count 176 thou/uL (130-400); RBC Distribution Width 12.5 % (11.5-14.5); Red Blood Cell (RBC) Count 4.77 mill/uL (4.20-5.40); White Blood Cell (WBC) Count 6.4 thou/uL (4.8-10.8)
[2021-04-19 06:46] LABS: Lactic Acid 1.2 mmol/L (0.5-2.2)
[2021-04-19 06:57] LABS: Anion Gap 15 mmol/L (10-20); BUN (Urea Nitrogen) 7 mg/dL (9.8-20.1); Calc. Creatinine Clearance 64 mL/min (70-130); Calcium 8.1 mg/dL (7.8-10.44); Carbon Dioxide 22 mmol/L (23-31); Chloride 109 mmol/L (98-107); Glucose 97 mg/dL (83-110); Potassium 3.2 mmol/L (3.5-5.1); Sodium 143 mmol/L (136-145)
[2021-04-19] MEDS: levETIRAcetam in NS 500 MG in Premix Bag 1 BAG IVPB SCH ×2 (08:47→22:53)
[2021-04-19] MEDS: Pantoprazole 40 MG VIAL IVP SCH (08:48)
[2021-04-19] MEDS: Enoxaparin Sodium 40 MG/0.4 ML SYRINGE SC SCH (08:48)
[2021-04-19 13:36] LABS: Vancomycin, Trough 8.3 ug/mL
[2021-04-19] MEDS: Potassium Chloride 20 MEQ in Premix Bag 1 BAG IVPB SCH ×2 (14:12→18:22)
[2021-04-19] MEDS: Vancomycin HCl 750 MG in Sodium Chloride 0.9% 250 ML 250 ML IVPB SCH (14:54)
[2021-04-19] MEDS ORDERED: D5W-AA 4.25% with LYTES 1,000 ML IV SCH (20:00)
[2021-04-20] MEDS: Clindamycin/D5W 900 MG in Premix Bag 1 BAG IVPB SCH ×4 (00:17→20:33)
[2021-04-20] MEDS: Cefepime 2 GM in Sodium Chloride 0.9% 100 ML IVPB SCH ×2 (02:14→12:06)
[2021-04-20] MEDS: Vancomycin HCl 750 MG in Sodium Chloride 0.9% 250 ML 250 ML IVPB SCH ×2 (02:52→14:43)
[2021-04-20] MEDS: Sodium Chloride 0.9% 1,000 ML IV SCH ×4 (03:00→20:37)
[2021-04-20] MEDS: Albuterol Sulfate 2.5 mg/3 ml Neb NEB SCH ×4 (03:42→19:50)
[2021-04-20] MEDS: Enoxaparin Sodium 40 MG/0.4 ML SYRINGE SC SCH (08:02)
[2021-04-20] MEDS: Pantoprazole 40 MG VIAL IVP SCH (08:02)
[2021-04-20] MEDS: levETIRAcetam in NS 500 MG in Premix Bag 1 BAG IVPB SCH ×2 (08:03→20:32)
[2021-04-20] MEDS: D5W-AA 4.25% with LYTES 1,000 ML IV SCH ×2 (08:11→20:34)
[2021-04-20 13:39] LABS: Vancomycin, Trough 15.7 ug/mL
[2021-04-20 14:05] VITALS: BMI 25.4
[2021-04-21] MEDS: Cefepime 2 GM in Sodium Chloride 0.9% 100 ML IVPB SCH ×2 (00:17→13:01)
[2021-04-21] MEDS: Albuterol Sulfate 2.5 mg/3 ml Neb NEB SCH ×4 (02:01→18:48)
[2021-04-21] MEDS: Vancomycin HCl 750 MG in Sodium Chloride 0.9% 250 ML 250 ML IVPB SCH ×3 (02:39→18:16)
[2021-04-21] MEDS: Clindamycin/D5W 900 MG in Premix Bag 1 BAG IVPB SCH ×3 (05:47→21:09)
[2021-04-21 07:21] LABS: #Eosinphils 0.1 thou/uL (0.0-0.7); #Lymphocytes 1.5 thou/uL (1.20-3.40); #Monocytes 0.3 thou/uL (0.11-0.59); #Neutrophils 3.3 thou/uL (1.40-6.50); %Basophils 0.5 % (0.0-1.0); %Eosinophils 2.8 % (0.0-10.0); %Lymphocytes 27.7 % (21.0-51.0); %Monocytes 5.9 % (0.0-10.0); %Neutrophils 63.1 % (42.0-75.0); Hemoglobin 14.4 g/dL (12.0-16.0); Mean Corpuscular HGB CONC 35.5 g/dL (32.0-36.0); Mean Corpuscular Hemoglobin 32.4 pg (27.0-31.0); Mean Corpuscular Volume 91.1 fL (78.0-98.0); Mean Platelet Volume 6.7 fL (7.4-10.4); Platelet Count 206 thou/uL (130-400); RBC Distribution Width 12.3 % (11.5-14.5); Red Blood Cell (RBC) Count 4.45 mill/uL (4.20-5.40); White Blood Cell (WBC) Count 5.3 thou/uL (4.8-10.8)
[2021-04-21 07:30] LABS: Anion Gap 12 mmol/L (10-20); BUN (Urea Nitrogen) 16 mg/dL (9.8-20.1); Calc. Creatinine Clearance 69 mL/min (70-130); Calcium 8.8 mg/dL (7.8-10.44); Carbon Dioxide 19 mmol/L (23-31); Chloride 110 mmol/L (98-107); Glucose 127 mg/dL (83-110); Potassium 3.2 mmol/L (3.5-5.1); Sodium 138 mmol/L (136-145)
[2021-04-21] MEDS: Enoxaparin Sodium 40 MG/0.4 ML SYRINGE SC SCH (08:39)
[2021-04-21] MEDS: levETIRAcetam in NS 500 MG in Premix Bag 1 BAG IVPB SCH ×2 (08:40→21:09)
[2021-04-21] MEDS: Pantoprazole 40 MG VIAL IVP SCH (08:40)
[2021-04-21] MEDS: D5W-AA 4.25% with LYTES 1,000 ML IV SCH ×2 (08:40→22:15)
[2021-04-21] MEDS: Sodium Chloride 0.9% 1,000 ML IV SCH ×3 (09:57→21:14)
[2021-04-21] MEDS ORDERED: Potassium Chloride 20 MEQ in Premix Bag 1 BAG IVPB SCH (18:15)
[2021-04-22] MEDS: Albuterol Sulfate 2.5 mg/3 ml Neb NEB SCH ×4 (00:18→19:06)
[2021-04-22] MEDS: Cefepime 2 GM in Sodium Chloride 0.9% 100 ML IVPB SCH ×2 (01:03→12:44)
[2021-04-22 05:33] LABS: #Eosinphils 0.1 thou/uL (0.0-0.7); #Lymphocytes 1.5 thou/uL (1.20-3.40); #Monocytes 0.4 thou/uL (0.11-0.59); #Neutrophils 4.4 thou/uL (1.40-6.50); %Basophils 0.6 % (0.0-1.0); %Eosinophils 2.3 % (0.0-10.0); %Lymphocytes 22.6 % (21.0-51.0); %Monocytes 6.5 % (0.0-10.0); Hemoglobin 13.8 g/dL (12.0-16.0); Mean Corpuscular HGB CONC 34.6 g/dL (32.0-36.0); Mean Corpuscular Hemoglobin 31.3 pg (27.0-31.0); Mean Corpuscular Volume 90.5 fL (78.0-98.0); Mean Platelet Volume 6.7 fL (7.4-10.4); Platelet Count 232 thou/uL (130-400); RBC Distribution Width 12.2 % (11.5-14.5); White Blood Cell (WBC) Count 6.4 thou/uL (4.8-10.8)
[2021-04-22 05:50] LABS: Vancomycin, Trough 15.2 ug/mL
[2021-04-22 05:53] LABS: Anion Gap 15 mmol/L (10-20); BUN (Urea Nitrogen) 17 mg/dL (9.8-20.1); Calc. Creatinine Clearance 64 mL/min (70-130); Calcium 9.3 mg/dL (7.8-10.44); Carbon Dioxide 19 mmol/L (23-31); Chloride 110 mmol/L (98-107); Glucose 112 mg/dL (83-110); Potassium 3.5 mmol/L (3.5-5.1); Sodium 140 mmol/L (136-145)
[2021-04-22] MEDS: Clindamycin/D5W 900 MG in Premix Bag 1 BAG IVPB SCH ×3 (05:59→20:17)
[2021-04-22] MEDS: Vancomycin HCl 750 MG in Sodium Chloride 0.9% 250 ML 250 ML IVPB SCH ×2 (05:59→17:52)
[2021-04-22] MEDS: Sodium Chloride 0.9% 1,000 ML IV SCH ×3 (06:46→20:16)
[2021-04-22] MEDS: Pantoprazole 40 MG VIAL IVP SCH (08:21)
[2021-04-22] MEDS: levETIRAcetam in NS 500 MG in Premix Bag 1 BAG IVPB SCH ×2 (08:22→20:17)
[2021-04-22] MEDS: Enoxaparin Sodium 40 MG/0.4 ML SYRINGE SC SCH (08:22)
[2021-04-22] MEDS: D5W-AA 4.25% with LYTES 1,000 ML IV SCH ×2 (11:07→22:38)
[2021-04-23] MEDS: Albuterol Sulfate 2.5 mg/3 ml Neb NEB SCH ×5 (00:01→22:45)
[2021-04-23] MEDS: Cefepime 2 GM in Sodium Chloride 0.9% 100 ML IVPB SCH ×2 (00:03→12:56)
[2021-04-23] MEDS: Clindamycin/D5W 900 MG in Premix Bag 1 BAG IVPB SCH ×3 (06:25→22:04)
[2021-04-23] MEDS: levETIRAcetam in NS 500 MG in Premix Bag 1 BAG IVPB SCH ×2 (08:25→21:23)
[2021-04-23] MEDS: Pantoprazole 40 MG VIAL IVP SCH (08:25)
[2021-04-23] MEDS: Vancomycin HCl 750 MG in Sodium Chloride 0.9% 250 ML 250 ML IVPB SCH (08:26)
[2021-04-23] MEDS: Sodium Chloride 0.9% 1,000 ML IV SCH ×2 (08:31→14:31)
[2021-04-23] MEDS ORDERED: Ketamine 50 MG/ML (10ML VIAL) ONE (10:21)
[2021-04-23] MEDS ORDERED: Midazolam HCl 2 mg/2 ml Vial ONE (10:21)
[2021-04-23] MEDS ORDERED: Ondansetron HCl/PF 4 MG/2 ML Vial IVP PRN (10:58)
[2021-04-23] MEDS ORDERED: Promethazine HCl 25 MG/ML VIAL IVPB PRN (10:58)
[2021-04-23] MEDS ORDERED: Promethazine HCl 25 MG/ML VIAL IM PRN (10:58)
[2021-04-23] MEDS: D5W-AA 4.25% with LYTES 1,000 ML IV SCH (12:56)
[2021-04-23 18:10] LABS: Vancomycin, Trough 14.6 ug/mL
[2021-04-23] MEDS ORDERED: hydrALAZINE 25 MG TAB PO PRN (18:10)
[2021-04-23] MEDS ORDERED: Metoprolol Tartrate 25 MG TAB PER TUBE SCH (19:15)
[2021-04-23] MEDS ORDERED: Albuterol Sulfate 2.5 mg/3 ml Neb ONE (22:37)
[2021-04-24] MEDS: Cefepime 2 GM in Sodium Chloride 0.9% 100 ML IVPB SCH ×2 (01:00→12:48)
[2021-04-24] MEDS: D5W-AA 4.25% with LYTES 1,000 ML IV SCH (01:36)
[2021-04-24] MEDS: Sodium Chloride 0.9% 1,000 ML IV SCH ×3 (01:47→14:38)
[2021-04-24] MEDS: Clindamycin/D5W 900 MG in Premix Bag 1 BAG IVPB SCH ×3 (05:06→21:23)
[2021-04-24 05:52] LABS: #Eosinphils 0.2 thou/uL (0.0-0.7); #Lymphocytes 1.6 thou/uL (1.20-3.40); #Monocytes 0.5 thou/uL (0.11-0.59); #Neutrophils 6.5 thou/uL (1.40-6.50); %Basophils 0.3 % (0.0-1.0); %Eosinophils 1.8 % (0.0-10.0); %Lymphocytes 18.3 % (21.0-51.0); %Monocytes 5.4 % (0.0-10.0); %Neutrophils 74.2 % (42.0-75.0); Hemoglobin 12.8 g/dL (12.0-16.0); Mean Corpuscular HGB CONC 34.1 g/dL (32.0-36.0); Mean Corpuscular Hemoglobin 31.2 pg (27.0-31.0); Mean Corpuscular Volume 91.5 fL (78.0-98.0); Mean Platelet Volume 6.9 fL (7.4-10.4); Platelet Count 242 thou/uL (130-400); RBC Distribution Width 12.5 % (11.5-14.5); Red Blood Cell (RBC) Count 4.09 mill/uL (4.20-5.40); White Blood Cell (WBC) Count 8.8 thou/uL (4.8-10.8)
[2021-04-24 06:09] LABS: Anion Gap 11 mmol/L (10-20); BUN (Urea Nitrogen) 16 mg/dL (9.8-20.1); Calc. Creatinine Clearance 67 mL/min (70-130); Calcium 8.9 mg/dL (7.8-10.44); Carbon Dioxide 21 mmol/L (23-31); Chloride 111 mmol/L (98-107); Glucose 134 mg/dL (83-110); Potassium 3.2 mmol/L (3.5-5.1); Sodium 140 mmol/L (136-145)
[2021-04-24] MEDS: Metoprolol Tartrate 25 MG TAB PER TUBE SCH ×2 (08:45→20:13)
[2021-04-24] MEDS: levETIRAcetam in NS 500 MG in Premix Bag 1 BAG IVPB SCH ×2 (08:45→20:06)
[2021-04-24] MEDS: Pantoprazole 40 MG VIAL IVP SCH (08:46)
[2021-04-24] MEDS: Enoxaparin Sodium 40 MG/0.4 ML SYRINGE SC SCH (10:25)
[2021-04-24] MEDS: Albuterol Sulfate 2.5 mg/3 ml Neb NEB SCH ×4 (10:26→23:56)
[2021-04-24] MEDS ORDERED: Potassium Chloride 20 MEQ TAB PO SCH ×2 (12:15)
[2021-04-24 22:00] LABS: SARS-CoV-2 PCR by NAA Not Detected (NotDetected)
[2021-04-25] MEDS: Cefepime 2 GM in Sodium Chloride 0.9% 100 ML IVPB SCH ×2 (01:34→13:32)
[2021-04-25] MEDS: Sodium Chloride 0.9% 1,000 ML IV SCH ×3 (02:31→21:26)
[2021-04-25] MEDS: Clindamycin/D5W 900 MG in Premix Bag 1 BAG IVPB SCH ×3 (05:48→21:26)
[2021-04-25 07:20] LABS: Anion Gap 10 mmol/L (10-20); BUN (Urea Nitrogen) 12 mg/dL (9.8-20.1); Calc. Creatinine Clearance 66 mL/min (70-130); Calcium 8.7 mg/dL (7.8-10.44); Carbon Dioxide 21 mmol/L (23-31); Chloride 112 mmol/L (98-107); Glucose 159 mg/dL (83-110); Potassium 3.1 mmol/L (3.5-5.1); Sodium 140 mmol/L (136-145)
[2021-04-25] MEDS: levETIRAcetam in NS 500 MG in Premix Bag 1 BAG IVPB SCH (09:15)
[2021-04-25] MEDS: Aspirin Chewable 81 MG TAB PER TUBE SCH (09:16)
[2021-04-25] MEDS: Enoxaparin Sodium 40 MG/0.4 ML SYRINGE SC SCH (09:16)
[2021-04-25] MEDS: Pantoprazole 40 MG VIAL IVP SCH (09:16)
[2021-04-25] MEDS: Metoprolol Tartrate 25 MG TAB PER TUBE SCH ×2 (09:16→21:24)
[2021-04-25] MEDS: Albuterol Sulfate 2.5 mg/3 ml Neb NEB SCH ×4 (09:56→23:52)
[2021-04-25] MEDS: levETIRAcetam 500 mg/5 ml Oral Solution PER TUBE SCH (21:24)
[2021-04-26] MEDS: Cefepime 2 GM in Sodium Chloride 0.9% 100 ML IVPB SCH (00:42)
[2021-04-26] MEDS: Clindamycin/D5W 900 MG in Premix Bag 1 BAG IVPB SCH (05:00)
[2021-04-26] MEDS: Sodium Chloride 0.9% 1,000 ML IV SCH ×2 (06:10→15:29)
[2021-04-26] MEDS: Metoprolol Tartrate 25 MG TAB PER TUBE SCH ×2 (08:47→21:04)
[2021-04-26] MEDS: Enoxaparin Sodium 40 MG/0.4 ML SYRINGE SC SCH (08:47)
[2021-04-26] MEDS: Aspirin Chewable 81 MG TAB PER TUBE SCH (08:47)
[2021-04-26] MEDS: levETIRAcetam 500 mg/5 ml Oral Solution PER TUBE SCH ×2 (08:48→21:04)
[2021-04-26] MEDS: Pantoprazole 40 MG VIAL IVP SCH (08:48)
[2021-04-26] MEDS: Albuterol Sulfate 2.5 mg/3 ml Neb NEB SCH ×2 (09:51→13:52)
[2021-04-27] MEDS: Sodium Chloride 0.9% 1,000 ML IV SCH ×4 (00:56→18:10)
[2021-04-27] MEDS: Albuterol Sulfate 2.5 mg/3 ml Neb NEB SCH ×3 (10:06→18:19)
[2021-04-27] MEDS: levETIRAcetam 500 mg/5 ml Oral Solution PER TUBE SCH ×2 (10:14→20:58)
[2021-04-27] MEDS: Enoxaparin Sodium 40 MG/0.4 ML SYRINGE SC SCH (10:14)
[2021-04-27] MEDS: Metoprolol Tartrate 25 MG TAB PER TUBE SCH ×2 (10:14→20:59)
[2021-04-27] MEDS: Aspirin Chewable 81 MG TAB PER TUBE SCH (10:14)
[2021-04-27] MEDS: Pantoprazole 40 MG VIAL IVP SCH (10:15)
[2021-04-27 16:49] VITALS: TEMP 99.3
[2021-04-27 21:12] VITALS: BP 121/67
[2021-05-02 14:24] LABS: L.pneumophilia Abs 1.14
== END 2021-04-27 22:35 | disposition home health service (06) | DRG 871 ==
LOC: ERS 10:08 → ERHOLD 13:24 → SJJU 16:54
PROVIDERS: ADMIT Family Medicine; ATTEND Internal Medicine
PROC: 0DH63UZ Insertion of Feeding Device into Stomach, Percutaneous Approach (ICD-10-PCS; principal; 2021-04-23)
DX: A40.1 Sepsis due to streptococcus, group B (principal); J69.0 Pneumonitis due to inhalation of food and vomit; J96.01 Acute respiratory failure with hypoxia; F02.81 Dementia in other diseases classified elsewhere, unspecified severity, with behavioral disturbance; I69.951 Hemiplegia and hemiparesis following unspecified cerebrovascular disease affecting right dominant side; Z20.822 Contact with and (suspected) exposure to COVID-19; I45.10 Unspecified right bundle-branch block; E87.6 Hypokalemia; E04.1 Nontoxic single thyroid nodule; G30.9 Alzheimer's disease, unspecified; I10 Essential (primary) hypertension; G40.909 Epilepsy, unspecified, not intractable, without status epilepticus; T17.908A Unspecified foreign body in respiratory tract, part unspecified causing other injury, initial encounter; R13.12 Dysphagia, oropharyngeal phase; Z74.01 Bed confinement status; Z98.51 Tubal ligation status; I69.920 Aphasia following unspecified cerebrovascular disease; Z79.01 Long term (current) use of anticoagulants; Z79.82 Long term (current) use of aspirin; Z79.899 Other long term (current) drug therapy
CPT/HCPCS: 36415; 36416; 51701; 71045; 71275; 80048; 80053; 80202; 81003; 81015; 82550; 83605; 83690; 83735; 83880; 84443; 84484; 85007; 85025; 85027; 85379; 85610; 85730; 86713; 87040; 87086; 87449; 93005; 94640; 94760; 96365; 96367; C9113; J0692; J1650; J1953; J1956; J2250; J3370; J3475; J3480; J3490; J7030; J7050; J7611; Q9967; U0002; U0003; U0005